=== PATIENT | male | born 1950 | race Two or more races ===

== ENCOUNTER 2021-01-11 12:26 | Inpatient (IN) | payer MEDICARE ==
[~2021-01-11] VITALS: Ht 160 cm; Wt 60.3 kg
[2021-01-11] MEDS ORDERED: OLANZAPINE 5 MG TABLET ONE (13:26)
[2021-01-11] MEDS ORDERED: OLANZAPINE 5 MG TABLET PO ONE (13:30)
[2021-01-11 13:35] LABS: BILIRUBIN,URINE Negative (NEGATIVE); COLOR,URINE YELLOW (YELLOW); LEUKOCYTE ESTERASE ,URINE Negative (NEGATIVE); NITRITE, URINE Negative (NEGATIVE); PROTEIN,URINE >=300 mg/dl (NEGATIVE); UGLUCOSE >=1000 mg/dL (NEGATIVE); UROBILINOGEN,URINE 0.2 EU/dL (0.2)
--- NOTE | 2021-01-11 13:39 | NUR ---
JOSEFINA FROM HOME TO ER BED 12. AAO. NOT IN RESP DISTRESS. BROUGHT IN FOR DANGER TO SELF AND DANGER TO OTHER. PT IS ON 5150 HOLD BY SONIA ALLEN. PER HOLD. PT WAS BEING PARANOID AND SLEEPS WITH A MACHETE. THE PATIENT'S WAS AFRAID FOR HER LIFE BECAUSE HE WAS LOOING FOR HIS MACHETE UPON WAKING UP AFTER THE PT'S TOOK IT FROM HIM WHILE SLEEPING. PT WAS ABLE TO OBTAIN A KNIFE THIS MORNING. PT WAS ALSO REPORTED VERBALIZING SUICIDAL IDEATION W/O ANY PLAN D/T UNABLE TO TOLERATE HIS PHYSICAL PAIN. PT IS PLACED ON SUICIDAL PRECAUTION, PT IN GOWN, BELONGINGS TAKEN AWAY AND SITTER AT BEDSIDE. URINE WAS COLLECTED AND SENT TO LAB.
[2021-01-11 13:44] LABS: BACTERIA,URINE None seen /HPF (None Seen); RBC,URINE 0-2 /HPF (0-2); SQUAMOUS EPITHELIAL CELL,UR None Seen /HPF (None Seen); WBC,URINE 0-2 /HPF (0-3)
[2021-01-11 13:58] LABS: BASOPHILS # (AUTO) 0.1 K/uL (0.0-0.2); BASOPHILS % (AUTO) 1.2 % (0.0-2.0); EOSINOPHILS % (AUTO) 0.4 % (0.0-6.0); HEMATOCRIT 50 % (39-51); HEMOGLOBIN 16.6 g/dL (13.5-17.5); LYMPHOCYTES # (AUTO) 1.8 K/uL (0.8-4.8); LYMPHOCYTES % (AUTO) 16.8 % (20.0-44.0); MEAN CORPUSCULAR HGB CONC 33 g/dl (31.0-36.0); MEAN CORPUSCULAR VOLUME 97 fL (80-96); MONOCYTES # (AUTO) 0.7 K/uL (0.1-1.30); NEUTROPHILS # (AUTO) 8.2 K/uL (1.8-8.9); NEUTROPHILS % (AUTO) 75.6 % (43.0-81.0); PLATELET COUNT (AUTO) 169 K/uL (150-450); RED BLOOD CELL COUNT(AUTO) 5.17 MIL/uL (4.5-6.0); WHITE BLOOD COUNT (AUTO) 10.9 K/uL (4.3-11.0)
[2021-01-11 14:08] LABS: CALCIUM, SERUM 9.4 mg/dL (8.5-10.1); CARBON DIOXIDE 31 mmol/L (21-32); CHLORIDE 102 mmol/L (98-107); CREATININE 1.1 mg/dL (0.6-1.3); GLUCOSE 339 mg/dL (74-106); POTASSIUM 4.2 mmol/L (3.5-5.1); SODIUM SERUM 140 mmol/L (136-145); UREA NITROGEN, BLOOD 13 mg/dL (7-18)
[2021-01-11 14:14] LABS: ACETAMINOPHEN 0 ug/ml (10-30); ALANINE AMINOTRANSFERASE 15 U/L (12-78); ALBUMIN 3.7 g/dL (3.4-5.0); ALCOHOL, BLOOD < 3 mg/dL (0-0); ALKALINE PHOSPHATASE 98 U/L (46-116); ASPARTATE AMINOTRANSFERASE 17 U/L (15-37); BILIRUBIN,DIRECT 0.1 mg/dL (0.0-0.2); BILIRUBIN,TOTAL 0.5 mg/dL (0.2-1.0); TOTAL PROTEIN, SERUM 7.4 g/dL (6.4-8.2)
--- NOTE | 2021-01-11 17:39 | NUR ---
BED 212B
--- NOTE | 2021-01-11 17:55 | NUR ---
REPORT GIVEN TO LALITA CUBA AT [facility].
--- NOTE | 2021-01-11 17:55 | NUR ---
REMIGIO ARANDA DNP AWARE OF ELEVATED BLOOD PRESSURE.
--- NOTE | 2021-01-11 18:14 | NUR ---
PATIENT TRANSFERRED TO [facility] INS TABLE CONDITION.
--- NOTE | 2021-01-11 18:14 | NUR ---
PT IS BEING TRANSPOTED TO UNIT ON WHEELCHAIR. PT IS IN STABLE CONDITION. NAD NOTED.
[2021-01-11] MEDS ORDERED: MAGNESIUM HYDROXIDE 30 ML UDC PO PRN (18:30)
[2021-01-11] MEDS ORDERED: MAG HYDROX/AL HYDROX/SIMETH 30 ML UDC PO PRN (18:30)
[2021-01-11] MEDS ORDERED: BLOOD SUGAR DIAGNOSTIC 1 EACH STRIP IN ONE (18:30)
[2021-01-11] MEDS ORDERED: ACETAMINOPHEN 325 MG TABLET PO PRN (18:30)
--- NOTE | 2021-01-11 18:53 | NUR ---
RN-CO: DR HARGROVE GAVE ADMITTING ORDERS NOTED AND CARRIED OUT.
[2021-01-11 20:00] VITALS: BP 161/84
[2021-01-11 20:43] VITALS: BP 161/84
[2021-01-11] MEDS: clonazePAM 0.5 MG TABLET PO PRN (20:59)
--- NOTE | 2021-01-11 21:00 | NUR ---
RN NOTE KLONOPIN 0.5 MG PO PRN GIVEN FOR ANXIETY/AGITATION. WILL CONTINUE TO MONITOR PATIENT
--- NOTE | 2021-01-11 21:00 | NUR ---
PSYCH ARNP NOTE RECEIVED PATIENT FROM [facility] ER. PATIENT ADMITTED ON A 5150 HOLD FOR DTS/DTO. PER HOLD PATIENT ADMITS TO SLEEPING WITH MACHETE, REMOVED MACHETE WHILE HE WAS SLEEPING, UPON WAKING UP PATIENT DEMANDED THAT FIND THE MACHETE, AND WENT TO THE KITCHEN AND GRABBED A KNIFE, REPORTED BEING IN FEAR FOR HER LIFE AND RUNNING OUT OF THE HOUSE TO HIDE PATIENT RAN AFTER HER, PER HOLD PATIENT ADMITS SUICIDAL IDEATION DUE TO BEING UNABLE TO TOLERATE PHYSICAL PAIN AND ASKED DOCTOR TO "EUTHANIZE" HIM. UPON FACE TO FACE ASSESSMENT PATIENT IS ALERT/ORIENTED X 3, ANXIOUS, RESTLESS, AND WORRIED ABOUT BEING HOME ALONE, AND WANTING TO GO HOME. PATIENT STATES IN CROATIAN THAT HE'S NOT CRAZY AND DOESN'T BELONG HERE, STATES THAT IT'S AN INJUSTICE THAT HE'S BEING HELD HERE BECAUSE HE'S A GOOD PERSON. PT DENIES PAIN. NO S/S OF APPARENT DISTRESS OR SOB NOTED, BREATHING EVEN AND UNLABORED. PATIENT DENIES SI/HI AT THIS TIME. PT IS AMBULATORY BUT UNSTEADY AT TIMES. PATIENT REFUSED TO SIGN ANY PAPER WORK DUE TO CURRENT MENTAL STATUS. PATIENT ADVISED OF HIS HOLD AND RIGHTS BOOKLET GIVEN. PATIENT IS UNDER THE PSYCHIATRIC CARE OF DR. HARGROVE AND THE MEDICAL CARE OF DR. REMIGIO ARANDA. PATIENT BELONGINGS WERE INVENTORIED AND CHECKED FOR CONTRABAND. PATIENT ADVANCED DIRECTIVES PREFERENCE, IMMUNIZATIONS QUESTIONNAIRE, NECESSARY PAPERWORK COMPLETED. PT. REFUSED FULL BODY SKIN ASSESSMENT. PATIENT STATES HE DOES NOT HAVE FLU, PNEUMONIA OR COVID 19 VACCINES AND WILL NOT BE GETTING THEM. PATIENT ORIENTATED TO ROOM, FLOOR, AND STAFF. PATIENT BED SIDE RAILS ARE UP X 2 FOR SAFETY. PATIENT BED IS LOCKED IN LOW POSITION. BED ALARM IS ON. WILL CONTINUE TO MONITOR THIS PATIENT Q 15 MIN WITH THE HELP OF STAFF TO MAINTAIN SAFETY.
[2021-01-11] MEDS ORDERED: ALPR0.25 PO (21:45)
[2021-01-11] MEDS ORDERED: BRIM5DRO LEFTEYE (21:45)
[2021-01-11] MEDS ORDERED: INSU3INS3 SQ (21:45)
--- NOTE | 2021-01-11 22:00 | NUR ---
RN NOTE CALLED AND SPOKE TO PATIENT'S URIEL. PER PATIENT TAKES HUMALOG 75/25 INSULIN 12 UNITS BID, XANAX 0.25 MG AT BEDTIME AND BRIMONIDINE SOLUTION 0.2% EYE DROPS FOR LEFT EYE BID. WANTS TO TALK TO MOTOR VEHICLE EMISSIONS INSPECTOR ABOUT GETTING HOME HEALTH FOR PATIENT AND ALSO WANTS TO SPEAK TO DOCTOR ABOUT PATIENT'S CONDITION. WILL ENDORSE TO DAY SHIFT NURSE. PATIENT SPOKE TO AFTERWARD AND WAS MORE CALM AND WENT TO SLEEP AFTER SPEAKING TO HER. WILL CONTINUE TO MONITOR PATIENT.
[2021-01-11 22:05] VITALS: BP 161/84
[2021-01-11 23:15] VITALS: BP 149/82
--- NOTE | 2021-01-12 00:03 | NUR ---
RN NOTE: DR. HARGROVE WAS NOTIFIED ABOUT PATIENT'S ADMISSION AT [facility] UNIT.
--- NOTE | 2021-01-12 00:10 | NUR ---
RN NOTE SPOKE TO DR. LEAHY REGARDING PATIENT'S BS = 307. PER PATIENT'S URIEL, PATIENT TAKES HUMALOG 75/25 INSULIN, 12 UNITS BID AT HOME. ORDER TO START PATIENT ON MILD SLIDING SCALE PER DR. LEAHY. ORDER READ BACK AND CONFIRMED. ORDER CARRIED OUT.
[2021-01-12] MEDS: BLOOD SUGAR DIAGNOSTIC 1 EACH STRIP IN SCH ×5 (00:25→21:08)
[2021-01-12] MEDS: INSULIN REGULAR, HUMAN 100 UNIT/ML 3 ML VIAL SQ PRN ×6 (00:29→21:20)
[2021-01-12] MEDS ORDERED: DEXTROSE 50%-WATER 50 ML DISP.SYRIN IV PRN ×2 (00:30→17:30)
--- NOTE | 2021-01-12 06:30 | NUR ---
RN CLOSING NOTE PATIENT SLEPT MOST OF THE NIGHT, WOKE UP A COUPLE TIMES TO STRETCH HIS LEGS AND WALK AROUND WITH ITINERANT TEACHER ASSISTANT WITH SBA, PT IS UNSTEADY AT TIMES, PT EVAL ORDERED. PT CURRENTLY SLEEPING, NO S/S OF DISTRESS OR SOB NOTED, BREATHING EVEN AND UNLABORED. PATIENT WAS MED COMPLIANT AND COOPERATIVE WITH CARE, ALTHOUGH HE WAS VERY ANXIOUS ABOUT BEING HOME ALONE AND INSISTING THAT HE NEEDS TO GO HOME. PATIENT DENIES SI/HI AT THIS TIME. MEDICATIONS GIVEN ORDERED, PT NEEDS MET THROUGHOUT SHIFT. SAFETY MEASURES IN PLACE: BED LOCKED IN LOW POSITION, SIDE RAILS UP X 2, Q15 MIN CHECKS FOR SAFETY AND BEHAVIOR. SPOKE TO LAST NIGHT AND SHE STATED SHE WOULD LIKE TO SPEAK TO DOCTOR REGARDING PATIENT'S CONDITION AND THE PLUMBERS AND TOP HELPERS REGARDING HOME HEALTH. PER DR. LEAHY, MED RECON TO BE DONE BY JESSICA LUCERO. WILL ENDORSE TO DAY SHIFT NURSE FOR CONTINUITY OF CARE
[2021-01-12 06:56] LABS: ALBUMIN 3.3 g/dL (3.4-5.0); BILIRUBIN,TOTAL 0.6 mg/dL (0.2-1.0); CALCIUM, SERUM 8.6 mg/dL (8.5-10.1); CREATININE 0.9 mg/dL (0.6-1.3); POTASSIUM 3.7 mmol/L (3.5-5.1); TOTAL PROTEIN, SERUM 6.8 g/dL (6.4-8.2)
[2021-01-12 06:57] LABS: CHOLESTEROL 162 mg/dL (<200); HDL CHOLESTEROL 37 mg/dL (40-60); LDL 104 mg/dL (0-99); TRIGLYCERIDES 178 mg/dL (30-150)
[2021-01-12 08:00] VITALS: BP 154/65
[2021-01-12] MEDS: DIVALPROEX SODIUM 250 MG TABLET.DR PO SCH ×3 (13:35→21:09)
[2021-01-12] MEDS: OLANZAPINE 2.5 MG TABLET PO SCH ×3 (13:35→16:22)
[2021-01-12 16:00] VITALS: BP 147/81
--- NOTE | 2021-01-12 16:21 | NUR ---
RN NOTE PATIENT REFUSED OLANZAPINE AFTER OPENING. MEDICATION WASTED. EXPLAINED RISK AND BENEFITS PATIENT STATED HE IS TAKING TOO MUCH MEDICATION ONLY WANTS TO TAKE INSULIN.
[2021-01-12] MEDS ORDERED: BLOOD SUGAR DIAGNOSTIC 1 EACH STRIP IN SCH (17:30)
[2021-01-12] MEDS ORDERED: INSULIN REGULAR, HUMAN 100 UNIT/ML 3 ML VIAL SQ PRN (17:30)
[2021-01-12] MEDS: TEMAZEPAM 7.5 MG CAPSULE PO PRN ×2 (20:57→21:07)
--- NOTE | 2021-01-13 06:18 | NUR ---
RN notes, Patient stayed awake all night. Refused to take medication. Kept on walking around the hallway until 04:00. No complaint of pain. Kept clean and dry. No significant change of condition.
[2021-01-13] MEDS: BLOOD SUGAR DIAGNOSTIC 1 EACH STRIP IN SCH ×5 (07:31→21:07)
[2021-01-13] MEDS: INSULIN REGULAR, HUMAN 100 UNIT/ML 3 ML VIAL SQ PRN (07:33)
[2021-01-13 08:00] VITALS: BP 150/90
[2021-01-13] MEDS: OLANZAPINE 2.5 MG TABLET PO SCH ×2 (08:21→16:26)
[2021-01-13] MEDS: BRIMONIDINE TARTRATE OPHT SOLN 5 ML BOTTLE LEFTEYE SCH ×2 (08:22→16:29)
--- NOTE | 2021-01-13 12:06 | NUR ---
Initial Discharge Plan: Per pt. [facility] [facility] [address] [phone][facility] with , URIEL OVIEDO [phone]. Per pt. he would like to return home once ready for D/C. Per pt.'s , Uriel she would like the pt. to return home when ready. Uriel stated she has agreed to go to therapy with . SW will continue to collaborate with the psychiatrist to plan a safe & proper D/C plan.
--- NOTE | 2021-01-13 12:11 | NUR ---
Point of Contact: SW called and spoke with pt.'s , URIEL OVIEDO [phone] collect collateral information. Pt. gave SW verbal consent to speak to . Pt. has no DPOA or Conservator.
[2021-01-13 16:00] VITALS: BP 149/90
--- NOTE | 2021-01-13 17:58 | NUR ---
[facility] RN NOTES PATIENT REFUSED MOST MEDS TODAY AND 1700 ACCU-CHECK
[2021-01-13 20:48] VITALS: BP 165/96
[2021-01-13] MEDS: DIVALPROEX SODIUM 250 MG TABLET.DR PO SCH ×2 (20:59→21:00)
[2021-01-13] MEDS: clonazePAM 0.5 MG TABLET PO PRN ×2 (20:59→21:06)
--- NOTE | 2021-01-13 21:07 | NUR ---
[facility] RN NOTE PATIENT REFUSED DEPAKOTE TONIGHT X MULTIPLE ATTEMPTS. PATIENTS BP ELEVATED AT 165/95. SUPERVISOR COREMAKER MD LEAHY CONTACTED WITH NO CALL BACK. ATTEMPTED TO ADMINISTER PRN KLONOPIN WITH PATIENT REFUSING AFTER MEDICATION PACKAGING OPEN. MEDICATION WASTED WITH SECOND RN VARINDER. PATIENT CURRENTLY SITTING IN CHAIR AT DOORWAY TO ROOM. WILL CONTINUE TO MONITOR.
[2021-01-14] MEDS ORDERED: OLANZAPINE 10 MG VIAL IM STA (06:06)
--- NOTE | 2021-01-14 06:06 | NUR ---
[facility]PS RN NOTE, PATIENT IS CONFUSED, INCOHERENT, DELUSIONAL, AGITATED, AGGRESSIVE, YELLING, AND STRIKING OUT AT STAFF. LESS RESTRICTIVE MEASURES ATTEMPTED IE DIVERSION, 1 TO 1 INTERACTION, AND REORIENTATION WAS TRIED WITH NO POSITIVE EFFECT. PAGED DR POOLE AND INFORMED HER OF MY FINDINGS. DR POOLE ORDERED ZYPREXA 5MG IM ONCE. PATIENT GIVEN AFOREMENTIONED MEDICATION IN HER RIGHT DELTOID WITH THE HELP OF STAFF AND SECURITY. PATIENT TOLERATE INJECTION WELL. ALL ORDERS NOTED AND CARRIED OUT WILL CONTINUE TO MONITOR THIS PATIENT WITH THE HELP OF STAFF.
[2021-01-14] MEDS: BLOOD SUGAR DIAGNOSTIC 1 EACH STRIP IN SCH ×4 (07:30→22:18)
[2021-01-14 08:00] VITALS: BP 139/85
[2021-01-14] MEDS: BRIMONIDINE TARTRATE OPHT SOLN 5 ML BOTTLE LEFTEYE SCH ×2 (09:00→16:40)
[2021-01-14] MEDS: OLANZAPINE 2.5 MG TABLET PO SCH ×2 (09:05→16:34)
[2021-01-14] MEDS: DIVALPROEX SODIUM 250 MG TABLET.DR PO SCH ×2 (09:05→21:48)
[2021-01-14] MEDS: clonazePAM 0.5 MG TABLET PO PRN (16:34)
--- NOTE | 2021-01-14 17:06 | NUR ---
gps/rn pt is agitated refused accucheck offered x3
[2021-01-14 20:51] VITALS: BP 138/78
[2021-01-14] MEDS: DIVALPROEX SODIUM 125 MG TABLET.DR PO SCH (21:48)
[2021-01-14] MEDS: INSULIN REGULAR, HUMAN 100 UNIT/ML 3 ML VIAL SQ PRN (22:22)
--- NOTE | 2021-01-14 22:30 | NUR ---
[facility] RN NOTES: PATIENT BLOOD SUGAR AT 22:00 428MG/DL (H). 10 UNITS REGULAR INSULIN ADMINISTERED PER SLIDING SCALE. DR LEAHY NOTIFIED PER PROTOCOL. METFORMIN 500MG PO BID ORDERED BY DR LEAHY, ORDER CARRIED OUT. PATIENT HAS NO S/S OF DISTRESS, RESPIRATION EVEN AND UNLABORED WITH EQUAL RISE AND FALL OF THE CHEST, ON ROOM AIR. WILL CONTINUE TO MONITOR.
[2021-01-15] MEDS: TEMAZEPAM 7.5 MG CAPSULE PO PRN ×2 (01:09→23:46)
--- NOTE | 2021-01-15 01:09 | NUR ---
[facility] RN NOTES: RESTORIL 15MG GIVEN PO PRN FOR SLEEP AT 0109. WILL CONTINUE TO MONITOR.
[2021-01-15] MEDS ORDERED: HALOPERIDOL LACTATE INJ 5 MG/ML VIAL IM ONE (06:00)
[2021-01-15] MEDS ORDERED: diphenhydrAMINE HCL 50 MG/ML VIAL IM ONE (06:00)
--- NOTE | 2021-01-15 06:23 | NUR ---
[facility] RN NOTES: PATIENT IS AGITATED, COMBATIVE, RESTLESS, YELLING, BANGING. REFUSING REDIRECTION. DR POOLE ORDERED HALDOL 5MG IM AND BENADRYL 25MG IM. MEDS ADMINISTERED AT 0618. PATIENT IS STILL AGITATED, YELLING AND REFUSING REDIRECTION. WILL CONTINUE TO MONITOR.
--- NOTE | 2021-01-15 06:28 | NUR ---
[facility] RN NOTES: BENADRYL 25MG PARTIAL DOSE WASTED.
[2021-01-15] MEDS: BLOOD SUGAR DIAGNOSTIC 1 EACH STRIP IN SCH ×4 (07:30→22:26)
[2021-01-15 08:00] VITALS: BP 118/56
[2021-01-15] MEDS ORDERED: METFORMIN 500 MG TABLET PO SCH (08:00)
[2021-01-15] MEDS: BRIMONIDINE TARTRATE OPHT SOLN 5 ML BOTTLE LEFTEYE SCH ×2 (08:07→16:45)
[2021-01-15] MEDS: OLANZAPINE 2.5 MG TABLET PO SCH ×2 (09:00→16:45)
[2021-01-15] MEDS: DIVALPROEX SODIUM 125 MG TABLET.DR PO SCH ×2 (09:00→21:38)
[2021-01-15] MEDS: DIVALPROEX SODIUM 250 MG TABLET.DR PO SCH ×2 (09:00→21:38)
[2021-01-15 11:48] LABS: BASOPHILS # (AUTO) 0.1 K/uL (0.0-0.2); BASOPHILS % (AUTO) 0.7 % (0.0-2.0); HEMATOCRIT 46 % (39-51); HEMOGLOBIN 15.2 g/dL (13.5-17.5); LYMPHOCYTES # (AUTO) 1.6 K/uL (0.8-4.8); LYMPHOCYTES % (AUTO) 12.3 % (20.0-44.0); MEAN CORPUSCULAR HGB CONC 33 g/dl (31.0-36.0); MEAN CORPUSCULAR VOLUME 97 fL (80-96); MONOCYTES # (AUTO) 0.6 K/uL (0.1-1.30); NEUTROPHILS # (AUTO) 10.4 K/uL (1.8-8.9); PLATELET COUNT (AUTO) 152 K/uL (150-450); RED BLOOD CELL COUNT(AUTO) 4.72 MIL/uL (4.5-6.0); WHITE BLOOD COUNT (AUTO) 12.7 K/uL (4.3-11.0)
[2021-01-15 12:00] LABS: ALBUMIN 3.4 g/dL (3.4-5.0); BILIRUBIN,TOTAL 0.6 mg/dL (0.2-1.0); CALCIUM, SERUM 9.1 mg/dL (8.5-10.1); CREATININE 1.6 mg/dL (0.6-1.3); MAGNESIUM 2.4 mg/dL (1.8-2.4); POTASSIUM 4.8 mmol/L (3.5-5.1); TOTAL PROTEIN, SERUM 6.8 g/dL (6.4-8.2)
[2021-01-15] MEDS: INSULIN LISPRO/ASPART 100 UNIT/ML CARTRIDGE SQ SCH ×2 (12:00→16:35)
--- NOTE | 2021-01-15 12:18 | NUR ---
RN-CO: NOTIFIED DR SANDERS REGARDING BUN 38 AND CREA 1.6. AWAITING FOR HIS REPLY. PT IS ASLEEP AT THIS TIME WILL TRY TO DO COLLECTING URINE WHEN PT IS AWAKE.
--- NOTE | 2021-01-15 12:27 | NUR ---
RN-CO: PT DID NOT SLEEP AT ALL LAST NIGHT. HE IS SLEEPING FROM 7:30 AM UP TO THIS TIME, RESPIRATION EVEN AND UNLABORED. THEREFORE, BLOOD SUGAR AND INSULIN AND UA COLLECTION WAS NOT PERFORMED. I WILL WAIT UNTIL PATIENT IS AWAKE.
--- NOTE | 2021-01-15 14:52 | NUR ---
per RN, LALITA PT NOT UP TO HAVING THE EXAM TODAY, REQUESTING FOR EXAM TO BE DONE ON SATURDAY.
[2021-01-15 16:00] VITALS: BP 139/71
--- NOTE | 2021-01-15 16:33 | NUR ---
RN-CO: BLOOD SUGAR IS 239
[2021-01-15] MEDS: INSULIN REGULAR, HUMAN 100 UNIT/ML 3 ML VIAL SQ PRN ×2 (16:39→22:24)
--- NOTE | 2021-01-15 16:51 | NUR ---
RN-CO: PATIENT IS AWAKE, LOOKS WELL RESTED TOOK HIS PM MEDICATIONS AND HIS INSULIN. COOPERATIVE TO CARE.
--- NOTE | 2021-01-15 18:25 | NUR ---
RNCristopherCO: URINE SPECIMEN WAS COLLECTED AT AROUND 1630, LAB WAS CALLED TO PICK IT UP.
[2021-01-15 19:22] LABS: BILIRUBIN,URINE NEGATIVE (NEGATIVE); COLOR,URINE YELLOW (YELLOW); LEUKOCYTE ESTERASE ,URINE NEGATIVE (NEGATIVE); NITRITE, URINE NEGATIVE (NEGATIVE); PROTEIN,URINE 100 mg/dl (NEGATIVE); UGLUCOSE >=1000 mg/dL (NEGATIVE); UROBILINOGEN,URINE 0.2 EU/dL (0.2)
[2021-01-15 19:36] LABS: CREATININE, URINE 155.6 MG/DL (30.0-125.0); URINE TOTAL PROTEIN 104.8 mg/dL (0-11.9)
[2021-01-15 19:49] LABS: BACTERIA,URINE RARE /HPF (None Seen); HYALINE CASTS, URINE Few /LPF (None Seen); MUCUS,URINE Few /LPF (None Seen); SQUAMOUS EPITHELIAL CELL,UR 0-2 /HPF (None Seen); WBC,URINE 0-2 /HPF (0-3)
[2021-01-15 20:00] VITALS: BP 125/61
[2021-01-15 20:03] LABS: EOSINOPHIL,URINE None Seen
[2021-01-15 20:52] VITALS: BP 125/61
[2021-01-15] MEDS: INSULIN GLARGINE, 100 UNIT/ML CARTRIDGE SQ SCH (22:23)
[2021-01-15] MEDS: clonazePAM 0.5 MG TABLET PO PRN (22:45)
--- NOTE | 2021-01-15 22:45 | NUR ---
[facility]PS RN Note: Agitation Patient was yelling loudly in his room. The yelling was disruptive to the unit. Patient was nonredirectable by multiple staff members. Patient was given PRN Klonopin by mouth for agitation. Will continue to monitor the patient.
--- NOTE | 2021-01-15 23:46 | NUR ---
[facility]PS RN Note Patient was unable to sleep. Patient was given ordered PRN Restoril by mouth. Will continue to monitor the patient.
--- NOTE | 2021-01-16 02:23 | NUR ---
[facility]PS RN NOTE BLOOD SUGAR AT HS WAS 362 MG/DL. ORDERED 10 UNITS OF LANTUS WAS ADMINISTERED. 10 UNITS OF REGULAR INSULIN WAS ALSO ADMINISTERED. WILL CONTINUE TO MONITOR.
[2021-01-16] MEDS: INSULIN REGULAR, HUMAN 100 UNIT/ML 3 ML VIAL SQ PRN ×4 (07:34→22:11)
[2021-01-16] MEDS: BLOOD SUGAR DIAGNOSTIC 1 EACH STRIP IN SCH ×4 (07:35→22:08)
[2021-01-16] MEDS: INSULIN LISPRO/ASPART 100 UNIT/ML CARTRIDGE SQ SCH ×3 (07:35→17:03)
[2021-01-16 08:00] VITALS: BP 112/70
[2021-01-16] MEDS: BRIMONIDINE TARTRATE OPHT SOLN 5 ML BOTTLE LEFTEYE SCH ×2 (08:21→17:09)
[2021-01-16] MEDS: DIVALPROEX SODIUM 125 MG TABLET.DR PO SCH (08:27)
[2021-01-16] MEDS: DIVALPROEX SODIUM 250 MG TABLET.DR PO SCH ×3 (08:27→17:09)
[2021-01-16] MEDS: OLANZAPINE 2.5 MG TABLET PO SCH ×2 (08:27→17:09)
[2021-01-16 09:25] LABS: BASOPHILS # (AUTO) 0.1 K/uL (0.0-0.2); BASOPHILS % (AUTO) 0.9 % (0.0-2.0); EOSINOPHILS % (AUTO) 1.5 % (0.0-6.0); HEMATOCRIT 46 % (39-51); HEMOGLOBIN 15.5 g/dL (13.5-17.5); LYMPHOCYTES # (AUTO) 2.9 K/uL (0.8-4.8); LYMPHOCYTES % (AUTO) 35.7 % (20.0-44.0); MEAN CORPUSCULAR HGB CONC 34 g/dl (31.0-36.0); MEAN CORPUSCULAR VOLUME 98 fL (80-96); MONOCYTES # (AUTO) 0.6 K/uL (0.1-1.30); MONOCYTES % (AUTO) 7.6 % (2.0-12.0); NEUTROPHILS # (AUTO) 4.4 K/uL (1.8-8.9); NEUTROPHILS % (AUTO) 54.3 % (43.0-81.0); PLATELET COUNT (AUTO) 149 K/uL (150-450); RED BLOOD CELL COUNT(AUTO) 4.68 MIL/uL (4.5-6.0); WHITE BLOOD COUNT (AUTO) 8.2 K/uL (4.3-11.0)
[2021-01-16 10:16] LABS: MAGNESIUM 2.5 mg/dL (1.8-2.4); PHOSPHORUS 2.5 mg/dL (2.5-4.9)
[2021-01-16 16:00] VITALS: BP 134/73
[2021-01-16 20:00] VITALS: BP 151/89
[2021-01-16] MEDS: INSULIN GLARGINE, 100 UNIT/ML CARTRIDGE SQ SCH (22:10)
[2021-01-16] MEDS: TEMAZEPAM 7.5 MG CAPSULE PO PRN (22:13)
[2021-01-17 07:35] LABS: BASOPHILS # (AUTO) 0.1 K/uL (0.0-0.2); BASOPHILS % (AUTO) 0.7 % (0.0-2.0); EOSINOPHILS % (AUTO) 1.1 % (0.0-6.0); HEMATOCRIT 44 % (39-51); HEMOGLOBIN 14.9 g/dL (13.5-17.5); LYMPHOCYTES # (AUTO) 2.8 K/uL (0.8-4.8); LYMPHOCYTES % (AUTO) 36.6 % (20.0-44.0); MEAN CORPUSCULAR HGB CONC 34 g/dl (31.0-36.0); MEAN CORPUSCULAR VOLUME 97 fL (80-96); MONOCYTES # (AUTO) 0.7 K/uL (0.1-1.30); MONOCYTES % (AUTO) 9.4 % (2.0-12.0); NEUTROPHILS % (AUTO) 52.2 % (43.0-81.0); PLATELET COUNT (AUTO) 145 K/uL (150-450); RED BLOOD CELL COUNT(AUTO) 4.56 MIL/uL (4.5-6.0); WHITE BLOOD COUNT (AUTO) 7.8 K/uL (4.3-11.0)
[2021-01-17 08:00] VITALS: BP 152/77
[2021-01-17 08:07] LABS: CREATININE KINASE (CK),MB 8.4 ng/mL (0.0-10.4)
[2021-01-17 08:14] LABS: CALCIUM, SERUM 8.4 mg/dL (8.5-10.1); CREATININE 0.9 mg/dL (0.6-1.3); MAGNESIUM 2.4 mg/dL (1.8-2.4); PHOSPHORUS 2.6 mg/dL (2.5-4.9); POTASSIUM 4.1 mmol/L (3.5-5.1)
[2021-01-17] MEDS: BLOOD SUGAR DIAGNOSTIC 1 EACH STRIP IN SCH ×2 (08:16→12:04)
[2021-01-17] MEDS: INSULIN REGULAR, HUMAN 100 UNIT/ML 3 ML VIAL SQ PRN ×2 (08:55→12:09)
[2021-01-17] MEDS: INSULIN LISPRO/ASPART 100 UNIT/ML CARTRIDGE SQ SCH ×2 (08:58→12:10)
[2021-01-17] MEDS: OLANZAPINE 2.5 MG TABLET PO SCH (09:03)
[2021-01-17] MEDS: BRIMONIDINE TARTRATE OPHT SOLN 5 ML BOTTLE LEFTEYE SCH (09:03)
[2021-01-17] MEDS: DIVALPROEX SODIUM 250 MG TABLET.DR PO SCH (09:04)
[2021-01-17 10:07] LABS: *SPE ALPHA-1-GLOBULIN 0.2 g/dL (0.0-0.4); *SPE ALPHA-2-GLOBULIN 0.7 g/dL (0.4-1.0); *SPE BETA GLOBULIN 1.2 g/dL (0.7-1.3); *SPE M-SPIKE Not Observed g/dL (Not Observed)
--- NOTE | 2021-01-17 12:45 | NUR ---
pt. made ready for discharge.all papers signed.taken to lobby escorted by armament mechanic.belongings given to pt. prescriptions given to pt. with folder.
--- NOTE | 2021-01-17 12:50 | NUR ---
SS D/C note Pt. was be discharged back to his apartment located at [[address] [facility] [address]; [phone]] with , Melissa Valdivia. Pt.s , Melissa Valdivia [phone] was made aware of the discharge and was agreeable and picked up the pt around 12 p.m. [facility] [[address] [facility] [facility] [address]; [phone]]. Upon discharge, the pt. appeared to be in a euthymic mood and presented with a calm affect. Pt appeared to be alert and oriented x4 (time, place, self and situation). Pt. ambulates independently. Pt denied both suicidal and homicidal ideation as well as auditory and visual hallucinations. Pt. has an apt. PCP: Dr. Fabian Hernandez ([facility] [place] [address]; [phone]) 5:30pm-6:30pm. Pt. was referred to [facility] Address:[address] [place], [place] [id number] Website: [email or web address] for outpatient psychiatric services. The multidisciplinary exit care form was done, printed, signed, and given to the patient.
== END 2021-01-17 12:45 | disposition home or self-care (01) | DRG 885 ==
LOC: ER 12:35 → GPS 17:58
PROVIDERS: ADMIT Psychiatry & Neurology Psychiatry; ATTEND Nurse Practitioner Acute Care
DX: F29 Unspecified psychosis not due to a substance or known physiological condition (principal); F01.50 Vascular dementia, unspecified severity, without behavioral disturbance, psychotic disturbance, mood disturbance, and anxiety; N17.0 Acute kidney failure with tubular necrosis; E11.65 Type 2 diabetes mellitus with hyperglycemia; F23 Brief psychotic disorder; F41.9 Anxiety disorder, unspecified; Z79.4 Long term (current) use of insulin; D72.829 Elevated white blood cell count, unspecified; H40.9 Unspecified glaucoma; M19.90 Unspecified osteoarthritis, unspecified site; Z20.822 Contact with and (suspected) exposure to COVID-19; G30.9 Alzheimer's disease, unspecified; F02.80 Dementia in other diseases classified elsewhere, unspecified severity, without behavioral disturbance, psychotic disturbance, mood disturbance, and anxiety; F25.9 Schizoaffective disorder, unspecified
CPT/HCPCS: 36415; 76770-TC; 80048-TC; 80053-TC; 80061-TC; 80076-TC; 81001; 82550-TC; 82553; 82570-TC; 82962-TC; 83735-TC; 83970; 84100-TC; 84155; 84155-TC; 84165; 84300-TC; 85025-TC; 87081-TC; 87086-TC; 97116-TC; 97530-TC; A6403; C9803; G0480; J1200; J1630; J1815; J3490

== ENCOUNTER 2024-11-29 22:16 | Inpatient (IN) | payer MEDICARE, OTHER ==
[~2024-11-29] VITALS: Ht 172.7 cm; Wt 61.2 kg
[~2024-11-29 22:16] MED LIST: ALPR0.25 PO; BRIM5DRO LEFTEYE; INSU3INS3 SQ
[2024-11-29] MEDS ORDERED: NOREPINEPHRINE 8MG/250ML RTU 250 ML IV ONE (23:21)
[2024-11-29 23:29] LABS: PLATELET COUNT (AUTO) 358 K/uL (150-450); RED BLOOD CELL COUNT(AUTO) 3.13 MIL/uL (4.5-6.0); RED CELL DISTRIBUTION WIDTH 16.2 % (11.5-15.0); WHITE BLOOD COUNT (AUTO) 8.2 K/uL (4.3-11.0)
[2024-11-29 23:38] LABS: CALCIUM, SERUM 8.5 mg/dL (8.5-10.1); CREATININE 2.1 mg/dL (0.6-1.3); SODIUM SERUM 125.0 mmol/L (136-145)
[2024-11-29 23:39] LABS: UREA NITROGEN, BLOOD 127.0 mg/dL (7-18)
[2024-11-29 23:44] LABS: LACTIC ACID 0.9 mmol/L (0.4-2.0)
[2024-11-29 23:47] LABS: INR 1.13 (0.91-1.10)
[2024-11-29 23:51] LABS: ASPARTATE AMINOTRANSFERASE 29.0 U/L (15-37); TOTAL PROTEIN, SERUM 7.1 g/dL (6.4-8.2)
[2024-11-30] VITALS (32 sets, daily range): BP systolic 91–130; BP diastolic 49–77; TEMP 97–97.8; O2SAT 96–100
[2024-11-30 00:16] LABS: ABG BASE EXCESS 8.5 mmol/L (-2.0-3.0); ABG OXYGEN SATURATION 95.7 % (94.0-98.0); ABG PCO2 51.8 mmHg (35.0-48.0); ABG PH 7.434 (7.350-7.450); ABG PO2 85.0 mmHg (83.0-108.0); ABG TOTAL HEMOGLOBIN 9.8 G/dL (13.5-17.5); FRACTIONATED INSPIRED OXYGEN 60.0 %; SET RATE, BG 20.0; SITE, ABG LEFT RADIAL
[2024-11-30] MEDS ORDERED: PIPERACI/TAZO 3.375GM/D5W 50ML PB IV ONE (00:27)
[2024-11-30] MEDS ORDERED: VANCOMYCIN 1 GM /D5W 250 ML PB IV ONE (00:27)
[2024-11-30] MEDS: PIPERACILLIN /TAZOBACTAM 3.375 G in IV D5W 50 ML IV ONE (00:28)
[2024-11-30] MEDS: FUROSEMIDE 40 MG/4 ML VIAL IV ONE ×2 (00:28→02:14)
[2024-11-30] MEDS: VANCOMYCIN 1 GM in IV D5W 250 ML IV ONE (00:28)
[2024-11-30 00:58] LABS: APPEARANCE,URINE SLIGHTLY CLOUDY (CLEAR); BLOOD, URINE 3+ Ery/uL (NEGATIVE); LEUKOCYTE ESTERASE ,URINE 2+ (NEGATIVE); NITRITE, URINE NEGATIVE (NEGATIVE); UGLUCOSE NEGATIVE (NEGATIVE)
[2024-11-30 01:22] LABS: ADD URINE CULTURE YES; SQUAMOUS EPITHELIAL CELL,UR Few /HPF (None Seen); YEAST,URINE Moderate /HPF (None Seen)
[2024-11-30] MEDS ORDERED: ASCO500C6 JT (02:02)
[2024-11-30] MEDS ORDERED: INSU100V7 SQ (02:02)
[2024-11-30] MEDS ORDERED: ZINC220C6 JT (02:02)
[2024-11-30] MEDS ORDERED: CRAN3875 JT (02:02)
[2024-11-30] MEDS ORDERED: MODAFINIL JT (02:02)
[2024-11-30] MEDS ORDERED: MULT-213 JT (02:02)
[2024-11-30] MEDS ORDERED: FINA5TAB3 JT (02:02)
[2024-11-30] MEDS ORDERED: ASPI-1169 JT (02:02)
[2024-11-30] MEDS ORDERED: ATOR80TA JT (02:13)
[2024-11-30] MEDS ORDERED: DOCU100T2 JT (02:13)
[2024-11-30] MEDS ORDERED: METO25TA6 JT (02:13)
[2024-11-30] MEDS ORDERED: FAMO20TA80 GT (02:13)
[2024-11-30] MEDS ORDERED: FURO40TA5 JT (02:13)
[2024-11-30] MEDS ORDERED: TAMS-12 GT (02:13)
[2024-11-30] MEDS ORDERED: LEVA1.2528 IH (02:13)
[2024-11-30] MEDS ORDERED: FOLI1TAB34 JT (02:13)
[2024-11-30] MEDS ORDERED: APIX5TAB4 JT (02:13)
[2024-11-30] MEDS ORDERED: DOSING PER PHARMACY-CEFEPIME IVPB XX PRN (04:00)
[2024-11-30] MEDS ORDERED: ACETAMINOPHEN 650 MG/SUPP.RECT RC PRN (04:00)
[2024-11-30] MEDS ORDERED: DEXTROSE 50%-WATER 50 ML DISP.SYRIN IV PRN (04:00)
[2024-11-30] MEDS ORDERED: ONDANSETRON HCL/PF 4 MG/2 ML VIAL IVP PRN (04:00)
[2024-11-30] MEDS ORDERED: DOSING PER PHARMACY-VANCOMYCIN IV XX PRN (04:00)
[2024-11-30 05:10] LABS: PLATELET COUNT (AUTO) 347 K/uL (150-450); RED BLOOD CELL COUNT(AUTO) 3.21 MIL/uL (4.5-6.0); RED CELL DISTRIBUTION WIDTH 16.9 % (11.5-15.0); WHITE BLOOD COUNT (AUTO) 7.6 K/uL (4.3-11.0)
[2024-11-30] MEDS ORDERED: CEFEPIME 1 GM VIAL ONE (05:26)
[2024-11-30 05:31] LABS: ASPARTATE AMINOTRANSFERASE 28.0 U/L (15-37); CALCIUM, SERUM 8.4 mg/dL (8.5-10.1); CREATININE 2.1 mg/dL (0.6-1.3); SODIUM SERUM 125.0 mmol/L (136-145); TOTAL PROTEIN, SERUM 6.8 g/dL (6.4-8.2)
[2024-11-30 05:40] LABS: ABG BASE EXCESS 4.7 mmol/L (-2.0-3.0); ABG OXYGEN SATURATION 93.2 % (94.0-98.0); ABG PCO2 35.5 mmHg (35.0-48.0); ABG PH 7.511 (7.350-7.450); ABG PO2 68.2 mmHg (83.0-108.0); ABG TOTAL HEMOGLOBIN 10.4 G/dL (13.5-17.5); FLOW, BLOOD GAS 40.00 L/min (0.00-30.00); FRACTIONATED INSPIRED OXYGEN 60.0 %; SITE, ABG LEFT RADIAL
[2024-11-30] MEDS: CEFEPIME 1 GM in IV D5W 50 ML IV ONE (05:40)
[2024-11-30 06:00] LABS: UREA NITROGEN, BLOOD 117.0 mg/dL (7-18)
[2024-11-30] MEDS: MODAFINIL 100 MG TABLET GT SCH (06:28)
[2024-11-30] MEDS ORDERED: BLOOD SUGAR DIAGNOSTIC 1 EACH STRIP IN SCH ×3 (07:30→12:00)
[2024-11-30] MEDS: DOCUSATE SODIUM LIQ 100 MG/10 ML UDC GT SCH ×2 (08:41→21:32)
[2024-11-30] MEDS ORDERED: MODAFINIL 100 MG JT SCH (09:00)
[2024-11-30] MEDS: FINASTERIDE (5 MG) 5 MG TABLET GT SCH (09:00)
[2024-11-30] MEDS ORDERED: METOPROLOL TARTRATE 25 MG TABLET JT SCH (09:00)
[2024-11-30] MEDS: MULTIVIT W/MINERALS 1 TAB TABLET GT SCH (09:00)
[2024-11-30] MEDS: TAMSULOSIN 0.4 MG CAP.SR.24H GT SCH ×2 (09:00→21:33)
[2024-11-30] MEDS: INSULIN GLARGINE, 100 UNIT/ML CARTRIDGE SQ SCH (09:00)
[2024-11-30] MEDS ORDERED: Medication Not On Formulary EA (Zinc Sulfate (Zinc-220) 220 MG) JT SCH (09:00)
[2024-11-30] MEDS: ASCORBIC ACID 500 MG TABLET GT SCH (09:00)
[2024-11-30] MEDS: PROSOURCE / PROSTAT (PYXIS) 30 ML UDC GT SCH (09:00)
[2024-11-30] MEDS ORDERED: Medication Not On Formulary EA (Insulin Glargine,Hum.rec.anlog (Lantus) 20 UNIT) SQ SCH (09:00)
[2024-11-30] MEDS ORDERED: ASPIRIN 81 MG TAB.CHEW GT SCH (09:00)
[2024-11-30] MEDS ORDERED: FUROSEMIDE 40 MG TABLET GT SCH (09:00)
[2024-11-30] MEDS: FAMOTIDINE (20 MG) 20 MG TABLET GT SCH ×2 (09:00→21:32)
[2024-11-30] MEDS ORDERED: Medication Not On Formulary EA (Multivitamins W-Minerals (Multivitamins With Minerals) 1 JT SCH (09:00)
[2024-11-30] MEDS: ZINC SULFATE 220 MG CAPSULE GT SCH (09:00)
[2024-11-30 09:06] LABS: FIBRINOGEN ACTIVITY 421.0 Mg/dL (213-485); INR 1.15 (0.91-1.10)
[2024-11-30 09:46] LABS: PHOSPHORUS 5.6 mg/dL (2.5-4.9)
[2024-11-30 09:53] LABS: LDL 37 mg/dL (0-99)
[2024-11-30] MEDS: INSULIN REGULAR, HUMAN 100 UNIT/ML 3 ML VIAL SQ PRN (12:13)
[2024-11-30] MEDS: BLOOD SUGAR DIAGNOSTIC 1 EACH STRIP IN SCH (12:17)
[2024-11-30] MEDS ORDERED: APIXABAN 2.5 MG TABLET GT SCH (17:00)
[2024-11-30] MEDS: VIT B CMPLX 3/FA/VIT C/BIOTIN 1 TAB TABLET JT SCH (18:00)
[2024-11-30] MEDS: APIXABAN 2.5 MG TABLET GT SCH (21:00)
[2024-11-30] MEDS: ATORVASTATIN 40 MG TABLET GT SCH (21:32)
[2024-11-30] MEDS: FLUCONAZOLE (100 MG) 100 MG TABLET PO SCH (21:33)
[2024-12-01] VITALS (27 sets, daily range): BP systolic 90–151; BP diastolic 48–75; TEMP 97–97.6; O2SAT 93–100
[2024-12-01] MEDS: VANCOMYCIN 750 MG in IV D5W 250 ML IV SCH (00:28)
[2024-12-01 05:05] LABS: PLATELET COUNT (AUTO) 317 K/uL (150-450); RED BLOOD CELL COUNT(AUTO) 2.72 MIL/uL (4.5-6.0); RED CELL DISTRIBUTION WIDTH 16.8 % (11.5-15.0); WHITE BLOOD COUNT (AUTO) 8.8 K/uL (4.3-11.0)
[2024-12-01 05:26] LABS: ASPARTATE AMINOTRANSFERASE 26.0 U/L (15-37); CALCIUM, SERUM 8.2 mg/dL (8.5-10.1); CREATININE 1.5 mg/dL (0.6-1.3); TOTAL PROTEIN, SERUM 5.8 g/dL (6.4-8.2)
[2024-12-01 05:49] LABS: SODIUM SERUM 131.0 mmol/L (136-145)
[2024-12-01 05:55] LABS: UREA NITROGEN, BLOOD 106.0 mg/dL (7-18)
[2024-12-01] MEDS: IV NS 0.9% 250 ML IV PRN (06:18)
[2024-12-01] MEDS: CEFEPIME 2 GM in IV D5W 100 ML IV SCH (06:20)
[2024-12-01] MEDS ORDERED: POTASSIUM CL. PREMIX PERIPHER. 50 ML IV SCH (06:30)
[2024-12-01] MEDS: ASPIRIN 81 MG TAB.CHEW GT SCH (08:29)
[2024-12-01] MEDS: POTASSIUM CHLORIDE 20 MEQ POWDER PACKET GT ONE (08:29)
[2024-12-01] MEDS: DAKINS QUARTER STRENGTH (0.125%) 480 ML BOTTLE TOP SCH (08:31)
[2024-12-01 16:05] LABS: CALCIUM, SERUM 8.6 mg/dL (8.5-10.1); CREATININE 1.3 mg/dL (0.6-1.3); SODIUM SERUM 133.0 mmol/L (136-145)
[2024-12-01 16:06] LABS: UREA NITROGEN, BLOOD 98.0 mg/dL (7-18)
[2024-12-01] MEDS: VIT B CMPLX 3/FA/VIT C/BIOTIN 1 TAB TABLET JT SCH (21:35)
[2024-12-01] MEDS: VANCOMYCIN 500 MG in IV D5W 100ml IV SCH (22:05)
[2024-12-02] VITALS (13 sets, daily range): BP systolic 111–135; BP diastolic 55–65; TEMP 97.5–98.4; O2SAT 98–100
[2024-12-02 04:46] LABS: PLATELET COUNT (AUTO) 347 K/uL (150-450); RED BLOOD CELL COUNT(AUTO) 2.95 MIL/uL (4.5-6.0); RED CELL DISTRIBUTION WIDTH 17.2 % (11.5-15.0); WHITE BLOOD COUNT (AUTO) 8.1 K/uL (4.3-11.0)
[2024-12-02 05:02] LABS: ASPARTATE AMINOTRANSFERASE 28.0 U/L (15-37); CALCIUM, SERUM 8.3 mg/dL (8.5-10.1); CREATININE 1.1 mg/dL (0.6-1.3); PHOSPHORUS 2.8 mg/dL (2.5-4.9); SODIUM SERUM 137.0 mmol/L (136-145); TOTAL PROTEIN, SERUM 5.9 g/dL (6.4-8.2)
[2024-12-02 06:02] LABS: UREA NITROGEN, BLOOD 82.0 mg/dL (7-18)
[2024-12-02 06:07] LABS: PTH, INTACT 80 pg/mL (15-65)
[2024-12-02 06:07] LABS: HEPATITIS B SURFACE AB (QUAL) Non Reactive (.)
[2024-12-02 08:07] LABS: COMPLEMENT C3, SERUM 110 mg/dL (82-167); COMPLEMENT C4, SERUM 40 mg/dL (12-38)
[2024-12-02] MEDS: POTASSIUM CHLORIDE 20 MEQ TAB.PRT.SR PO SCH (08:50)
[2024-12-02] MEDS: POTASSIUM CHLORIDE 20 MEQ POWDER PACKET GT ONE (09:41)
[2024-12-02] MEDS: Magnesium 1GM/D5W 100ML PREMIX 100 ML IV SCH (10:56)
[2024-12-02 13:08] LABS: *ANA ANTI-CENTROMERE B AB <0.2 AI (0.0-0.9); *ANA ANTI-DNA(DS) AB, QN <1 IU/mL (0-9); *ANA ANTI-JO-1 <0.2 AI (0.0-0.9); *ANA ANTICHROMATIN ANTIBODY <0.2 AI (0.0-0.9); *ANA RNP ANTIBODIES 0.5 AI (0.0-0.9); *ANA SJOGREN'S ANTI-SS-A <0.2 AI (0.0-0.9); *ANA SJOGREN'S ANTI-SS-B <0.2 AI (0.0-0.9); *ANAANTI-SCLERODERMA-70 AB <0.2 AI (0.0-0.9); *ANASMITH AB <0.2 AI (0.0-0.9)
[2024-12-02] MEDS: GLUCERNA 1.2 1,000 ML BOTTLE GT PRN (17:19)
[2024-12-02] MEDS: CEFEPIME 2 GM in IV D5W 100 ML IV SCH (18:20)
[2024-12-03] VITALS: BP 122/53; TEMP 98.1; O2SAT 96
[2024-12-03 04:00] VITALS: BP 112/56; TEMP 97.7; O2SAT 99
[2024-12-03 05:08] LABS: FOLIC ACID > 20.0 ng/mL (>3.0)
[2024-12-03 07:21] LABS: PLATELET COUNT (AUTO) 361 K/uL (150-450); RED BLOOD CELL COUNT(AUTO) 3.25 MIL/uL (4.5-6.0); RED CELL DISTRIBUTION WIDTH 16.9 % (11.5-15.0); WHITE BLOOD COUNT (AUTO) 10.7 K/uL (4.3-11.0)
[2024-12-03 07:30] VITALS: BP 114/55; TEMP 97.6; O2SAT 100
[2024-12-03 07:46] LABS: ASPARTATE AMINOTRANSFERASE 28.0 U/L (15-37); CALCIUM, SERUM 8.4 mg/dL (8.5-10.1); CREATININE 0.9 mg/dL (0.6-1.3); PHOSPHORUS 1.9 mg/dL (2.5-4.9); SODIUM SERUM 140.0 mmol/L (136-145); TOTAL PROTEIN, SERUM 6.2 g/dL (6.4-8.2); UREA NITROGEN, BLOOD 64.0 mg/dL (7-18)
[2024-12-03] MEDS ORDERED: FLUC100T8 PO (11:57)
[2024-12-03] MEDS ORDERED: CEPH250S GT (11:57)
[2024-12-03] MEDS ORDERED: APIX2.5T GT (11:57)
[2024-12-03] MEDS: NEUTRA PHOS 1 POWD.PACKET PO ONE (17:00)
[2024-12-04 15:07] LABS: *SPE A/G RATIO 0.6 (0.7-1.7); *SPE ALBUMIN 1.9 g/dL (2.9-4.4); *SPE ALPHA-1-GLOBULIN 0.3 g/dL (0.0-0.4); *SPE ALPHA-2-GLOBULIN 0.8 g/dL (0.4-1.0); *SPE BETA GLOBULIN 1.1 g/dL (0.7-1.3); *SPE GLOBULIN, TOTAL 3.4 g/dL (2.2-3.9); *SPE M-SPIKE Not Observed g/dL (Not Observed); *SPE PROTEIN TOTAL 5.3 g/dL (6.0-8.5); *SPEGAMMA GLOBULIN 1.3 g/dL (0.4-1.8)
[2024-12-06 09:07] LABS: VITAMIN B1 THIAMINE,WB 128.5 nmol/L (66.5-200.0)
[2024-12-06 13:07] LABS: METHYLMALONIC ACID 408 nmol/L (0-378)
== END 2024-12-03 18:20 | DRG 64 ==
LOC: ER 22:18 → ICU 11-30 02:33 → TELE 12-02 11:36
PROVIDERS: ADMIT Registered Nurse Psychiatric/Mental Health; ATTEND Nurse Practitioner Acute Care
DX: I63.9 Cerebral infarction, unspecified (principal); G93.41 Metabolic encephalopathy; J96.01 Acute respiratory failure with hypoxia; L89.154 Pressure ulcer of sacral region, stage 4; G93.5 Compression of brain; I50.33 Acute on chronic diastolic (congestive) heart failure; G93.6 Cerebral edema; I13.0 Hypertensive heart and chronic kidney disease with heart failure and stage 1 through stage 4 chronic kidney disease, or unspecified chronic kidney disease; T83.511A Infection and inflammatory reaction due to indwelling urethral catheter, initial encounter; N17.9 Acute kidney failure, unspecified; E87.1 Hypo-osmolality and hyponatremia; E87.3 Alkalosis; I69.354 Hemiplegia and hemiparesis following cerebral infarction affecting left non-dominant side; G91.1 Obstructive hydrocephalus; F10.27 Alcohol dependence with alcohol-induced persisting dementia; N13.6 Pyonephrosis; D64.9 Anemia, unspecified; E11.65 Type 2 diabetes mellitus with hyperglycemia; E78.5 Hyperlipidemia, unspecified; N18.9 Chronic kidney disease, unspecified; R13.10 Dysphagia, unspecified; Z74.01 Bed confinement status; Z79.01 Long term (current) use of anticoagulants; Z79.4 Long term (current) use of insulin; Z87.440 Personal history of urinary (tract) infections; Z93.1 Gastrostomy status; Z87.01 Personal history of pneumonia (recurrent); M62.50 Muscle wasting and atrophy, not elsewhere classified, unspecified site; Z20.822 Contact with and (suspected) exposure to COVID-19; L89.892 Pressure ulcer of other site, stage 2; E87.6 Hypokalemia; N40.1 Benign prostatic hyperplasia with lower urinary tract symptoms; E11.22 Type 2 diabetes mellitus with diabetic chronic kidney disease; I69.322 Dysarthria following cerebral infarction; I25.10 Atherosclerotic heart disease of native coronary artery without angina pectoris; B96.89 Other specified bacterial agents as the cause of diseases classified elsewhere; Y84.6 Urinary catheterization as the cause of abnormal reaction of the patient, or of later complication, without mention of misadventure at the time of the procedure; Y92.129 Unspecified place in nursing home as the place of occurrence of the external cause; Y73.8 Miscellaneous gastroenterology and urology devices associated with adverse incidents, not elsewhere classified; R29.711 NIHSS score 11
CPT/HCPCS: 31720; 36415; 36600; 70450-TC; 71045-TC; 76770-TC; 80048-TC; 80053-TC; 80061-TC; 80076-TC; 80202-TC; 81001; 82607-TC; 82803-TC; 82962-TC; 83605-TC; 83735-TC; 83880; 83921; 83970; 84100-TC; 84155; 84165; 84425; 84443-TC; 84550-TC; 85025-TC; 85385-TC; 85652-TC; 85730-TC; 86225; 86235; 86706; 86803; 87040-TC; 87070-TC; 87081-TC; 87086-TC; 87186-TC; 87205-TC; 87340; 92526; 92611; 93307-TC; 94640-TC; 94760-TC; 94799-TC; 97110-TC; 97530-TC; 99082-TC; A4223; G0378; J0692; J1815; J1938; J2543; J3373; J3374; J3475; J7040; J7050; J7060

== ENCOUNTER 2024-12-06 20:12 | Inpatient (IN) | payer MEDICARE, OTHER ==
[~2024-12-06] VITALS: Ht 172.7 cm; Wt 66.0 kg
[~2024-12-06 20:12] MED LIST changes: -ALPR0.25 PO; +APIX2.5T GT; +ASCO500C6 JT; +ASPI-1169 JT; +ATOR80TA JT; -BRIM5DRO LEFTEYE; +CEPH250S GT; +CRAN3875 JT; +DOCU100T2 JT; +FAMO20TA80 GT; +FINA5TAB3 JT; +FLUC100T8 PO; +FOLI1TAB34 JT; +FURO40TA5 JT; +INSU100V7 SQ; -INSU3INS3 SQ; +LEVA1.2528 IH; +METO25TA6 JT; +MODAFINIL JT; +MULT-213 JT; +TAMS-12 GT; +ZINC220C6 JT
[2024-12-06 21:00] LABS: PLATELET COUNT (AUTO) 255 K/uL (150-450); RED BLOOD CELL COUNT(AUTO) 2.77 MIL/uL (4.5-6.0); RED CELL DISTRIBUTION WIDTH 16.1 % (11.5-15.0); WHITE BLOOD COUNT (AUTO) 11.3 K/uL (4.3-11.0)
[2024-12-06 21:11] LABS: APPEARANCE,URINE CLEAR (CLEAR); BLOOD, URINE 3+ Ery/uL (NEGATIVE); LEUKOCYTE ESTERASE ,URINE TRACE (NEGATIVE); NITRITE, URINE NEGATIVE (NEGATIVE); UGLUCOSE 1+ mg/dL (NEGATIVE)
[2024-12-06 21:12] LABS: CALCIUM, SERUM 8.3 mg/dL (8.5-10.1); CREATININE 1.0 mg/dL (0.6-1.3); SODIUM SERUM 133.0 mmol/L (136-145); UREA NITROGEN, BLOOD 62.0 mg/dL (7-18)
[2024-12-06 21:14] LABS: INR 1.22 (0.91-1.10)
[2024-12-06 21:20] LABS: LACTIC ACID 1.3 mmol/L (0.4-2.0)
[2024-12-06 21:27] LABS: ASPARTATE AMINOTRANSFERASE 29.0 U/L (15-37); TOTAL PROTEIN, SERUM 6.7 g/dL (6.4-8.2)
[2024-12-06] MEDS ORDERED: PIPERACI/TAZO 3.375GM/D5W 50ML PB IV ONE (21:34)
[2024-12-06] MEDS ORDERED: VANCOMYCIN 1 GM /D5W 250 ML PB IV ONE (21:34)
[2024-12-06] MEDS: PIPERACILLIN /TAZOBACTAM 3.375 G in IV D5W 50 ML IV ONE (21:39)
[2024-12-06] MEDS ORDERED: Z GUARD REMEDY 4 OZ OINT TP PRN (22:00)
[2024-12-06] MEDS ORDERED: ONDANSETRON HCL/PF 4 MG/2 ML VIAL IVP PRN (22:00)
[2024-12-06] MEDS ORDERED: ACETAMINOPHEN 650 MG/SUPP.RECT RC PRN (22:00)
[2024-12-06] MEDS ORDERED: DOSING PER PHARMACY-VANCOMYCIN IV XX PRN (22:00)
[2024-12-06] MEDS ORDERED: DEXTROSE 50%-WATER 50 ML DISP.SYRIN IV PRN (22:00)
[2024-12-06 22:01] LABS: ADD URINE CULTURE NO; SQUAMOUS EPITHELIAL CELL,UR 0-2 /HPF (None Seen)
[2024-12-06 22:05] LABS: EOSINOPHILS % (MANUAL) 1 % (0-4); LYMPHOCYTES % (MANUAL) 20 % (16-48); MONOCYTES % (MANUAL) 1 % (0-11.0); NEUTROPHILS % (MANUAL) 78 (42-76); PLATELET ESTIMATE ADEQUATE
[2024-12-06] MEDS: VANCOMYCIN 1 GM in IV D5W 250 ML IV ONE (22:08)
[2024-12-06] MEDS: ALBUTEROL FS 2.5 MG/0.5 ML VIAL.NEB NEB ONE (23:00)
[2024-12-06] MEDS: BLOOD SUGAR DIAGNOSTIC 1 EACH STRIP IN SCH (23:47)
[2024-12-06 23:51] LABS: ABG BASE EXCESS 11.3 mmol/L (-2.0-3.0); ABG OXYGEN SATURATION 96.3 % (94.0-98.0); ABG PCO2 43.1 mmHg (35.0-48.0); ABG PH 7.528 (7.350-7.450); ABG PO2 84.5 mmHg (83.0-108.0); ABG TOTAL HEMOGLOBIN 8.9 G/dL (13.5-17.5); FLOW, BLOOD GAS 2.00 L/min (0.00-30.00); FRACTIONATED INSPIRED OXYGEN 28.0 %; SITE, ABG LEFT RADIAL
[2024-12-07] VITALS: BP 119/69; TEMP 98; O2SAT 100
[2024-12-07] MEDS: IPRATROPIUM NEB FS 0.5 MG/2.5 ML AMPUL.NEB NEB ONE (00:03)
[2024-12-07] MEDS: GLUCERNA 1.2 1,000 ML BOTTLE GT PRN (00:13)
[2024-12-07] MEDS: INSULIN REGULAR, HUMAN 100 UNIT/ML 3 ML VIAL SQ PRN (00:27)
[2024-12-07 04:00] VITALS: BP 125/60; TEMP 98.5; O2SAT 100
[2024-12-07] MEDS ORDERED: PIPERACILLIN /TAZOBACTAM 3.375 G in IV D5W 50 ML IV SCH (05:00)
[2024-12-07] MEDS ORDERED: PIPERACILLIN /TAZOBACTAM 3.375 G in IV D5W 50 ML IV ONE (05:00)
[2024-12-07 07:42] LABS: PLATELET COUNT (AUTO) 267 K/uL (150-450); RED BLOOD CELL COUNT(AUTO) 2.75 MIL/uL (4.5-6.0); RED CELL DISTRIBUTION WIDTH 16.5 % (11.5-15.0); WHITE BLOOD COUNT (AUTO) 10.6 K/uL (4.3-11.0)
[2024-12-07 07:54] LABS: CALCIUM, SERUM 8.4 mg/dL (8.5-10.1); CREATININE 1.1 mg/dL (0.6-1.3); PHOSPHORUS 2.6 mg/dL (2.5-4.9); SODIUM SERUM 136.0 mmol/L (136-145); UREA NITROGEN, BLOOD 56.0 mg/dL (7-18)
[2024-12-07 08:00] VITALS: BP 129/65; TEMP 98.4; O2SAT 100
[2024-12-07] MEDS: ZINC SULFATE 220 MG CAPSULE JT SCH (08:26)
[2024-12-07] MEDS: ASCORBIC ACID 500 MG TABLET GT SCH (08:26)
[2024-12-07] MEDS: FINASTERIDE (5 MG) 5 MG TABLET GT SCH (08:26)
[2024-12-07] MEDS: MULTIVIT W/MINERALS 1 TAB TABLET JT SCH (08:26)
[2024-12-07] MEDS: MODAFINIL 100 MG TABLET GT SCH (08:26)
[2024-12-07] MEDS: TAMSULOSIN 0.4 MG CAP.SR.24H GT SCH (08:26)
[2024-12-07] MEDS: DOCUSATE SODIUM LIQ 100 MG/10 ML UDC JT SCH (08:26)
[2024-12-07] MEDS: PANTOPRAZOLE 40 MG VIAL IV SCH (08:27)
[2024-12-07] MEDS: APIXABAN 2.5 MG TABLET GT SCH (08:27)
[2024-12-07] MEDS: METOPROLOL TARTRATE 25 MG TABLET JT SCH (08:27)
[2024-12-07] MEDS: ASPIRIN 81 MG TAB.CHEW GT SCH (08:27)
[2024-12-07] MEDS: FAMOTIDINE (20 MG) 20 MG TABLET GT SCH (08:27)
[2024-12-07] MEDS: FUROSEMIDE 40 MG/4 ML VIAL IV SCH (08:44)
[2024-12-07] MEDS: INSULIN GLARGINE, 100 UNIT/ML CARTRIDGE SQ SCH (08:49)
[2024-12-07] MEDS ORDERED: Medication Not On Formulary EA (Cran/Vitc/Mannose/Inulin/Brom (Uti-Stat Liquid) 30 ML) JT SCH (09:00)
[2024-12-07] MEDS ORDERED: FUROSEMIDE 40 MG TABLET GT SCH (09:00)
[2024-12-07] MEDS: ZOSYN IVPB 3.375 G in IV D5W 50ml IV SCH (10:22)
[2024-12-07] MEDS: VANCOMYCIN 750 MG in IV D5W 250 ML IV SCH (10:54)
[2024-12-07 11:46] LABS: ABG BASE EXCESS 12.6 mmol/L (-2.0-3.0); ABG OXYGEN SATURATION 97.7 % (94.0-98.0); ABG PCO2 46.6 mmHg (35.0-48.0); ABG PH 7.516 (7.350-7.450); ABG PO2 97.1 mmHg (83.0-108.0); ABG TOTAL HEMOGLOBIN 8.9 G/dL (13.5-17.5); FLOW, BLOOD GAS 2.00 L/min (0.00-30.00); FRACTIONATED INSPIRED OXYGEN 28.0 %; SITE, ABG RIGHT BRACHIAL
[2024-12-07 12:00] VITALS: BP 120/63; TEMP 98.4; O2SAT 100
[2024-12-07 16:00] VITALS: BP 113/58; TEMP 98.1; O2SAT 93
[2024-12-07] MEDS: VITAMIN B COMP W-C 1 TAB TABLET JT SCH (17:34)
[2024-12-07 20:00] VITALS: BP 117/54; TEMP 99.5; O2SAT 100
[2024-12-07] MEDS: ATORVASTATIN 40 MG TABLET GT SCH (22:57)
[2024-12-08] VITALS (7 sets, daily range): BP systolic 102–119; BP diastolic 53–59; TEMP 97.7–98.8; O2SAT 99–100
[2024-12-08 06:57] LABS: CALCIUM, SERUM 8.6 mg/dL (8.5-10.1); CREATININE 1.0 mg/dL (0.6-1.3); SODIUM SERUM 137 mmol/L (136-145); UREA NITROGEN, BLOOD 51 mg/dL (7-18)
[2024-12-08] MEDS: THERAHONEY GEL 1.5 OZ TUBE TP SCH (08:37)
[2024-12-08] MEDS: PROSOURCE / PROSTAT (PYXIS) 30 ML UDC GT SCH (16:37)
[2024-12-08] MEDS: VANCOMYCIN 1 GM in IV D5W 250 ML IV SCH (22:17)
[2024-12-09] VITALS: BP 116/53; TEMP 98.4; O2SAT 100
[2024-12-09 04:00] VITALS: BP 103/52; TEMP 98.8; O2SAT 100
[2024-12-09 08:00] VITALS: BP 128/94; TEMP 98.2; O2SAT 99
[2024-12-09] MEDS: PANTOPRAZOLE 40 MG/PACK PACK GT SCH (08:22)
[2024-12-09 09:52] LABS: SODIUM SERUM 139 mmol/L (136-145)
[2024-12-09 09:53] LABS: CALCIUM, SERUM 8.6 mg/dL (8.5-10.1); UREA NITROGEN, BLOOD 52 mg/dL (7-18)
[2024-12-09 09:54] LABS: CREATININE 1.0 mg/dL (0.6-1.3)
[2024-12-09] MEDS: Z GUARD REMEDY 4 OZ OINT TP SCH (13:08)
[2024-12-09 16:00] VITALS: BP 96/56; TEMP 98; O2SAT 98
[2024-12-09] MEDS ORDERED: VANCOMYCIN 1 GM in IV D5W 250 ML IV SCH (18:00)
[2024-12-09 20:00] VITALS: BP 128/63; TEMP 98.2; O2SAT 100
[2024-12-10 04:00] VITALS: BP 108/54; TEMP 98.4; O2SAT 98
[2024-12-10 08:45] LABS: CALCIUM, SERUM 8.6 mg/dL (8.5-10.1); CREATININE 1.4 mg/dL (0.6-1.3); SODIUM SERUM 142.0 mmol/L (136-145); UREA NITROGEN, BLOOD 53.0 mg/dL (7-18)
[2024-12-10] MEDS: PIPERACILLIN /TAZOBACTAM 3.375 G in IV D5W 100 ML IV SCH (10:33)
[2024-12-10 12:00] VITALS: BP 111/59; TEMP 98.8; O2SAT 98
[2024-12-10 20:00] VITALS: BP 114/58; TEMP 97.5; O2SAT 96
[2024-12-11] MEDS: ACETAMINOPHEN 650 MG/20.3 ML UDC GT PRN (03:45)
[2024-12-11 04:00] VITALS: BP 115/58; TEMP 98.2; O2SAT 100
[2024-12-11 07:15] LABS: CALCIUM, SERUM 8.9 mg/dL (8.5-10.1); CREATININE 1.4 mg/dL (0.6-1.3); SODIUM SERUM 144.0 mmol/L (136-145); UREA NITROGEN, BLOOD 59.0 mg/dL (7-18)
[2024-12-11 08:00] VITALS: BP 106/61; TEMP 98; O2SAT 94
[2024-12-11 12:00] VITALS: BP 100/60; TEMP 98.4; O2SAT 96
[2024-12-11 16:00] VITALS: BP 129/65; TEMP 97.6; O2SAT 96
[2024-12-11 20:00] VITALS: BP 106/59; TEMP 98.1; O2SAT 93
[2024-12-11] MEDS: GLUCERNA 1.2 1,000 ML BOTTLE NG SCH (22:30)
[2024-12-12 04:00] VITALS: BP 125/72; TEMP 99; O2SAT 99
[2024-12-12 07:51] LABS: CALCIUM, SERUM 8.7 mg/dL (8.5-10.1); CREATININE 1.6 mg/dL (0.6-1.3); PHOSPHORUS 4.3 mg/dL (2.5-4.9); SODIUM SERUM 140.0 mmol/L (136-145); UREA NITROGEN, BLOOD 71.0 mg/dL (7-18)
[2024-12-12 07:57] LABS: PLATELET COUNT (AUTO) 210 K/uL (150-450); RED BLOOD CELL COUNT(AUTO) 2.49 MIL/uL (4.5-6.0); RED CELL DISTRIBUTION WIDTH 16.4 % (11.5-15.0); WHITE BLOOD COUNT (AUTO) 11.5 K/uL (4.3-11.0)
[2024-12-12 08:00] VITALS: BP 115/63; TEMP 98.1; O2SAT 95
[2024-12-12 16:00] VITALS: BP 112/61; TEMP 97.7; O2SAT 100
[2024-12-12 20:00] VITALS: BP 112/61; TEMP 98.6; O2SAT 100
[2024-12-13 04:00] VITALS: BP 117/63; TEMP 99; O2SAT 100
[2024-12-13 07:17] LABS: CALCIUM, SERUM 8.8 mg/dL (8.5-10.1); CREATININE 2.0 mg/dL (0.6-1.3); SODIUM SERUM 144.0 mmol/L (136-145)
[2024-12-13 08:00] VITALS: BP 105/59; TEMP 98.2; O2SAT 100
[2024-12-13 08:06] LABS: UREA NITROGEN, BLOOD 82.0 mg/dL (7-18)
[2024-12-13 08:28] LABS: PLATELET COUNT (AUTO) 216 K/uL (150-450); RED BLOOD CELL COUNT(AUTO) 2.45 MIL/uL (4.5-6.0); RED CELL DISTRIBUTION WIDTH 16.2 % (11.5-15.0); WHITE BLOOD COUNT (AUTO) 13.0 K/uL (4.3-11.0)
[2024-12-13] MEDS ORDERED: DOSE PER PHARMACY (MD SPECIFY MEDICATION) 1 EA IV PRN (10:30)
[2024-12-13 15:39] LABS: CALCIUM, SERUM 8.4 mg/dL (8.5-10.1); CREATININE 1.9 mg/dL (0.6-1.3); SODIUM SERUM 141.0 mmol/L (136-145)
[2024-12-13 15:47] LABS: UREA NITROGEN, BLOOD 86.0 mg/dL (7-18)
[2024-12-13 16:00] VITALS: BP 122/68; TEMP 97.7; O2SAT 99
[2024-12-13 20:00] VITALS: BP 116/72; TEMP 98.3; O2SAT 98
[2024-12-14] VITALS (10 sets, daily range): BP systolic 115–134; BP diastolic 65–82; TEMP 97.3–98.6; O2SAT 98–100
[2024-12-14 08:01] LABS: CALCIUM, SERUM 8.8 mg/dL (8.5-10.1); CREATININE 2.2 mg/dL (0.6-1.3); PHOSPHORUS 5.3 mg/dL (2.5-4.9); SODIUM SERUM 143.0 mmol/L (136-145)
[2024-12-14 08:10] LABS: UREA NITROGEN, BLOOD 86.0 mg/dL (7-18)
[2024-12-14 08:22] LABS: PLATELET COUNT (AUTO) 250 K/uL (150-450); RED BLOOD CELL COUNT(AUTO) 2.24 MIL/uL (4.5-6.0); RED CELL DISTRIBUTION WIDTH 16.3 % (11.5-15.0); WHITE BLOOD COUNT (AUTO) 10.4 K/uL (4.3-11.0)
[2024-12-14 10:33] LABS: LYMPHOCYTES % (MANUAL) 19 % (16-48); MONOCYTES % (MANUAL) 4 % (0-11.0); NEUTROPHILS % (MANUAL) 77 (42-76)
[2024-12-14 10:34] LABS: PLATELET ESTIMATE ADEQUATE
[2024-12-14 13:52] LABS: IRON, SERUM 41.0 ug/dl (50-175)
[2024-12-14 17:32] LABS: APPEARANCE,URINE CLEAR (CLEAR); BLOOD, URINE 2+ Ery/uL (NEGATIVE); LEUKOCYTE ESTERASE ,URINE 1+ (NEGATIVE); NITRITE, URINE NEGATIVE (NEGATIVE); UGLUCOSE NEGATIVE (NEGATIVE)
[2024-12-14 17:43] LABS: CREATININE, URINE 26.9 MG/DL (30.0-125.0); URINE SODIUM, RANDOM 37.0 mmol/l (40-220); URINE TOTAL PROTEIN 135.0 mg/dL (0-11.9)
[2024-12-14 18:23] LABS: ADD URINE CULTURE YES; YEAST,URINE Many /HPF (None Seen)
[2024-12-14 18:26] LABS: EOSINOPHIL,URINE None Seen
[2024-12-14] MEDS: PIPERACILLIN /TAZOBACTAM 3.375 G in IV D5W 100 ML IV SCH (21:46)
[2024-12-15 04:00] VITALS: BP 122/66; TEMP 97.6; O2SAT 97
[2024-12-15 06:41] LABS: PLATELET COUNT (AUTO) 267 K/uL (150-450); RED BLOOD CELL COUNT(AUTO) 2.51 MIL/uL (4.5-6.0); RED CELL DISTRIBUTION WIDTH 16.6 % (11.5-15.0); WHITE BLOOD COUNT (AUTO) 10.5 K/uL (4.3-11.0)
[2024-12-15 06:48] LABS: ERYTHROCYTE SEDIMENTATION RATE 105 MM/HR (0-20)
[2024-12-15 07:00] LABS: ASPARTATE AMINOTRANSFERASE 31.0 U/L (15-37); CALCIUM, SERUM 8.8 mg/dL (8.5-10.1); CREATINE KINASE, TOTAL 56.0 U/L (39-308); CREATININE 2.0 mg/dL (0.6-1.3); NT-PRO BNP 20848.0 pg/mL (0-125); PHOSPHORUS 4.9 mg/dL (2.5-4.9); SODIUM SERUM 142.0 mmol/L (136-145); TOTAL PROTEIN, SERUM 6.9 g/dL (6.4-8.2)
[2024-12-15 07:42] LABS: UREA NITROGEN, BLOOD 97.0 mg/dL (7-18)
[2024-12-15 08:00] VITALS: BP 116/71; TEMP 97.4; O2SAT 95
[2024-12-15] MEDS: POTASSIUM CHLORIDE 20 MEQ POWDER PACKET GT ONE (11:09)
[2024-12-15 16:00] VITALS: BP 122/66; TEMP 98.1; O2SAT 100
[2024-12-15 20:00] VITALS: BP 117/62; TEMP 99; O2SAT 95
[2024-12-15 23:05] VITALS: O2SAT 100
[2024-12-15] MEDS: ALBUTEROL FS 2.5 MG/0.5 ML VIAL.NEB NEB PRN (23:05)
[2024-12-15] MEDS: IPRATROPIUM NEB FS 0.5 MG/2.5 ML AMPUL.NEB NEB PRN (23:05)
[2024-12-15 23:20] VITALS: O2SAT 100
[2024-12-16 04:00] VITALS: BP 92/66; TEMP 99.9; O2SAT 97
[2024-12-16] MEDS: GUAIFENESIN 300 MG/15 ML UDC PO PRN (04:49)
[2024-12-16 06:07] LABS: COMPLEMENT C3, SERUM 132 mg/dL (82-167); COMPLEMENT C4, SERUM 48 mg/dL (12-38)
[2024-12-16 08:00] VITALS: BP 112/48; TEMP 99.5; O2SAT 99
[2024-12-16 08:14] LABS: CALCIUM, SERUM 9.0 mg/dL (8.5-10.1); CREATININE 2.4 mg/dL (0.6-1.3); SODIUM SERUM 146.0 mmol/L (136-145)
[2024-12-16 08:23] LABS: UREA NITROGEN, BLOOD 108.0 mg/dL (7-18)
[2024-12-16 14:07] LABS: *ANA ANTI-CENTROMERE B AB <0.2 AI (0.0-0.9); *ANA ANTI-DNA(DS) AB, QN <1 IU/mL (0-9); *ANA ANTI-JO-1 <0.2 AI (0.0-0.9); *ANA ANTICHROMATIN ANTIBODY <0.2 AI (0.0-0.9); *ANA RNP ANTIBODIES 0.5 AI (0.0-0.9); *ANA SJOGREN'S ANTI-SS-A 0.2 AI (0.0-0.9); *ANA SJOGREN'S ANTI-SS-B <0.2 AI (0.0-0.9); *ANAANTI-SCLERODERMA-70 AB <0.2 AI (0.0-0.9); *ANASMITH AB <0.2 AI (0.0-0.9)
[2024-12-16 16:00] VITALS: BP 116/60; TEMP 98.3; O2SAT 96
[2024-12-16 20:00] VITALS: BP 107/60; TEMP 97.7; O2SAT 96
[2024-12-17 04:00] VITALS: BP 103/55; TEMP 98; O2SAT 99
[2024-12-17 04:03] LABS: HEPATITIS B SURFACE AB (QUAL) Non Reactive (.)
[2024-12-17 07:47] LABS: CALCIUM, SERUM 9.0 mg/dL (8.5-10.1); CREATININE 2.7 mg/dL (0.6-1.3); SODIUM SERUM 145.0 mmol/L (136-145)
[2024-12-17 08:00] VITALS: BP 96/51; TEMP 98.1; O2SAT 99
[2024-12-17 08:07] LABS: UREA NITROGEN, BLOOD 122.0 mg/dL (7-18)
[2024-12-17 13:40] LABS: ABG BASE EXCESS 8.5 mmol/L (-2.0-3.0); ABG OXYGEN SATURATION 84.8 % (94.0-98.0); ABG PCO2 43.3 mmHg (35.0-48.0); ABG PH 7.494 (7.350-7.450); ABG PO2 52.2 mmHg (83.0-108.0); ABG TOTAL HEMOGLOBIN 8.2 G/dL (13.5-17.5); FRACTIONATED INSPIRED OXYGEN 32.0 %; SITE, ABG RIGHT RADIAL
[2024-12-17 16:00] VITALS: BP 111/64; TEMP 97.1; O2SAT 99
[2024-12-17 20:00] VITALS: BP 121/55; TEMP 98.7; O2SAT 95
[2024-12-17 21:07] LABS: HEPATITIS B CORE AB, IgM Negative (Negative); HEPATITIS B CORE AB, TOTAL Negative (Negative); HEPATITIS B SURFACE AB (QUAL) Non Reactive (.)
[2024-12-18 04:00] VITALS: BP 116/64; TEMP 97.3; O2SAT 95
[2024-12-18 08:00] VITALS: BP 110/55; TEMP 97.9; O2SAT 99
[2024-12-18 09:00] LABS: PLATELET COUNT (AUTO) 328 K/uL (150-450); RED BLOOD CELL COUNT(AUTO) 2.29 MIL/uL (4.5-6.0); RED CELL DISTRIBUTION WIDTH 18.2 % (11.5-15.0); WHITE BLOOD COUNT (AUTO) 12.8 K/uL (4.3-11.0)
[2024-12-18 09:57] LABS: CALCIUM, SERUM 9.0 mg/dL (8.5-10.1); CREATININE 2.9 mg/dL (0.6-1.3); SODIUM SERUM 146.0 mmol/L (136-145)
[2024-12-18 10:02] LABS: UREA NITROGEN, BLOOD 150.0 mg/dL (7-18)
[2024-12-18 11:29] LABS: ABG BASE EXCESS 10.1 mmol/L (-2.0-3.0); ABG OXYGEN SATURATION 87.8 % (94.0-98.0); ABG PCO2 46.3 mmHg (35.0-48.0); ABG PH 7.489 (7.350-7.450); ABG PO2 59.6 mmHg (83.0-108.0); ABG TOTAL HEMOGLOBIN 7.1 G/dL (13.5-17.5); FLOW, BLOOD GAS 3.00 L/min (0.00-30.00); FRACTIONATED INSPIRED OXYGEN 32.0 %; SITE, ABG LEFT RADIAL
[2024-12-18 16:00] VITALS: BP 108/60; TEMP 97.5; O2SAT 99
[2024-12-18 20:45] VITALS: BP 95/53; TEMP 97.5; O2SAT 99
[2024-12-19] VITALS (13 sets, daily range): BP systolic 96–126; BP diastolic 47–73; TEMP 97.5–98.3; O2SAT 99–100
[2024-12-19 08:08] LABS: CALCIUM, SERUM 8.6 mg/dL (8.5-10.1); CREATININE 2.3 mg/dL (0.6-1.3); PHOSPHORUS 4.2 mg/dL (2.5-4.9); SODIUM SERUM 143.0 mmol/L (136-145)
[2024-12-19 08:22] LABS: UREA NITROGEN, BLOOD 106.0 mg/dL (7-18)
[2024-12-19 08:37] LABS: PLATELET COUNT (AUTO) 366 K/uL (150-450); RED BLOOD CELL COUNT(AUTO) 2.30 MIL/uL (4.5-6.0); RED CELL DISTRIBUTION WIDTH 18.2 % (11.5-15.0); WHITE BLOOD COUNT (AUTO) 14.5 K/uL (4.3-11.0)
[2024-12-19 10:30] LABS: ABG BASE EXCESS 10.0 mmol/L (-2.0-3.0); ABG OXYGEN SATURATION 96.5 % (94.0-98.0); ABG PCO2 36.1 mmHg (35.0-48.0); ABG PH 7.576 (7.350-7.450); ABG PO2 85.3 mmHg (83.0-108.0); ABG TOTAL HEMOGLOBIN 6.8 G/dL (13.5-17.5); FLOW, BLOOD GAS 5.00 L/min (0.00-30.00); FRACTIONATED INSPIRED OXYGEN 40.0 %; SITE, ABG LEFT RADIAL
[2024-12-19 12:03] LABS: EOSINOPHILS % (MANUAL) 1 % (0-4); LYMPHOCYTES % (MANUAL) 18 % (16-48); MONOCYTES % (MANUAL) 8 % (0-11.0); NEUTROPHILS % (MANUAL) 73 (42-76); PLATELET ESTIMATE ADEQUATE
[2024-12-20] VITALS: BP 85/49; TEMP 98.2; O2SAT 99
[2024-12-20] MEDS: MIDODRINE HCL (5MG) 5 MG TABLET PO ONE (00:30)
[2024-12-20 01:15] VITALS: BP 94/57; TEMP 98.2; O2SAT 99
[2024-12-20 07:49] LABS: CALCIUM, SERUM 8.6 mg/dL (8.5-10.1); CREATININE 1.8 mg/dL (0.6-1.3); PHOSPHORUS 3.8 mg/dL (2.5-4.9); SODIUM SERUM 142.0 mmol/L (136-145); UREA NITROGEN, BLOOD 67.0 mg/dL (7-18)
[2024-12-20 08:00] VITALS: BP 94/74; TEMP 98.1; O2SAT 98
[2024-12-20 08:13] LABS: PLATELET COUNT (AUTO) 349 K/uL (150-450); RED BLOOD CELL COUNT(AUTO) 2.92 MIL/uL (4.5-6.0); RED CELL DISTRIBUTION WIDTH 17.6 % (11.5-15.0); WHITE BLOOD COUNT (AUTO) 14.0 K/uL (4.3-11.0)
[2024-12-20] MEDS: POTASSIUM CL. PREMIX PERIPHER. 50 ML IV SCH (12:34)
[2024-12-20 16:00] VITALS: BP 90/52; TEMP 97.9; O2SAT 97
[2024-12-20] MEDS: MIDODRINE HCL (5MG) 5 MG TABLET PO SCH ×2 (16:00→16:20)
[2024-12-20 20:00] VITALS: BP 95/55; TEMP 97.7; O2SAT 98
[2024-12-21 04:00] VITALS: BP 118/56; TEMP 97.3; O2SAT 100
[2024-12-21 06:52] LABS: PLATELET COUNT (AUTO) 393 K/uL (150-450); RED BLOOD CELL COUNT(AUTO) 3.04 MIL/uL (4.5-6.0); RED CELL DISTRIBUTION WIDTH 17.9 % (11.5-15.0); WHITE BLOOD COUNT (AUTO) 14.3 K/uL (4.3-11.0)
[2024-12-21 06:59] LABS: CALCIUM, SERUM 8.5 mg/dL (8.5-10.1); CREATININE 1.7 mg/dL (0.6-1.3); PHOSPHORUS 3.3 mg/dL (2.5-4.9); SODIUM SERUM 139.0 mmol/L (136-145); UREA NITROGEN, BLOOD 51.0 mg/dL (7-18)
[2024-12-21 07:30] VITALS: BP 117/65; TEMP 97.9; O2SAT 100
[2024-12-21 08:00] VITALS: BP 117/65; TEMP 97.9; O2SAT 100
[2024-12-21] MEDS: POTASSIUM CL. PREMIX PERIPHER. 50 ML IV SCH (10:40)
[2024-12-21] MEDS ORDERED: NEPRO 1,000 ML BOTTLE GT PRN (13:00)
[2024-12-21] MEDS: NEPRO 1,000 ML BOTTLE GT PRN (13:42)
[2024-12-21 16:00] VITALS: BP 94/46; TEMP 99.1; O2SAT 92
[2024-12-21 20:00] VITALS: BP 94/57; TEMP 98.6; O2SAT 96
[2024-12-22 04:00] VITALS: BP 116/72; TEMP 99.5; O2SAT 99
[2024-12-22 07:47] LABS: CALCIUM, SERUM 9.0 mg/dL (8.5-10.1); CREATININE 2.2 mg/dL (0.6-1.3); PHOSPHORUS 4.0 mg/dL (2.5-4.9); SODIUM SERUM 139.0 mmol/L (136-145); UREA NITROGEN, BLOOD 64.0 mg/dL (7-18)
[2024-12-22 08:00] VITALS: BP 132/79; TEMP 98.6; O2SAT 92
[2024-12-22 08:05] LABS: INR 1.16 (0.91-1.10)
[2024-12-22] MEDS: PROSOURCE / PROSTAT (PYXIS) 30 ML UDC GT SCH (08:48)
[2024-12-22 16:00] VITALS: BP 115/73; TEMP 98.5; O2SAT 92
[2024-12-22 20:00] VITALS: BP 114/61; TEMP 99.7; O2SAT 92
[2024-12-23 04:00] VITALS: BP 105/60; TEMP 99; O2SAT 100
[2024-12-23 07:07] LABS: INR 1.18 (0.91-1.10)
[2024-12-23 07:09] LABS: PLATELET COUNT (AUTO) 403 K/uL (150-450); RED BLOOD CELL COUNT(AUTO) 2.91 MIL/uL (4.5-6.0); RED CELL DISTRIBUTION WIDTH 18.1 % (11.5-15.0); WHITE BLOOD COUNT (AUTO) 17.3 K/uL (4.3-11.0)
[2024-12-23 07:20] LABS: CALCIUM, SERUM 8.4 mg/dL (8.5-10.1); CREATININE 1.5 mg/dL (0.6-1.3); PHOSPHORUS 3.3 mg/dL (2.5-4.9); SODIUM SERUM 138.0 mmol/L (136-145); UREA NITROGEN, BLOOD 37.0 mg/dL (7-18)
[2024-12-23] MEDS ORDERED: LIDOCAINE 1% INJ 50 ML MDV IJ ONE (07:59)
[2024-12-23] MEDS ORDERED: HEPARIN SODIUM, PORCINE 1,000 UNIT/ML VIAL ONE (07:59)
[2024-12-23] MEDS ORDERED: IOHEXOL 0 ML IV ONE (07:59)
[2024-12-23 08:00] VITALS: BP 105/64; TEMP 97.9; O2SAT 95
[2024-12-23] MEDS: POTASSIUM CL. PREMIX PERIPHER. 50 ML IV SCH (09:15)
[2024-12-23 16:00] VITALS: BP 103/63; TEMP 97.1; O2SAT 99
[2024-12-23 20:00] VITALS: BP 114/56; TEMP 98.1; O2SAT 97
[2024-12-24 04:00] VITALS: BP 128/66; TEMP 97.9; O2SAT 99
[2024-12-24 08:00] VITALS: BP 92/51; TEMP 98.2; O2SAT 99
[2024-12-24] MEDS ORDERED: CEFAZOLIN 1 GM VIAL IM SCH (13:00)
[2024-12-24] MEDS ORDERED: CEFAZOLIN 2 GM in IV D5W 100 ML IV ONE (13:00)
[2024-12-24 16:00] VITALS: BP 132/52; TEMP 97.9; O2SAT 99
[2024-12-24] MEDS: CEFAZOLIN 2 GM in IV D5W 100 ML IV SCH (16:10)
[2024-12-24] MEDS: INSULIN REGULAR, HUMAN 100 UNIT/ML 3 ML VIAL SQ PRN (17:34)
[2024-12-24] MEDS: PROSOURCE / PROSTAT (PYXIS) 30 ML UDC GT SCH (18:00)
[2024-12-24 20:00] VITALS: BP 133/60; TEMP 100.2; O2SAT 99
[2024-12-25 01:27] VITALS: TEMP 98.8
[2024-12-25 04:00] VITALS: BP 112/55; TEMP 99; O2SAT 98
[2024-12-25 07:39] LABS: INR 1.19 (0.91-1.10)
[2024-12-25 07:57] LABS: ASPARTATE AMINOTRANSFERASE 27.0 U/L (15-37); CALCIUM, SERUM 8.4 mg/dL (8.5-10.1); CREATININE 2.7 mg/dL (0.6-1.3); PHOSPHORUS 3.5 mg/dL (2.5-4.9); SODIUM SERUM 140.0 mmol/L (136-145); TOTAL PROTEIN, SERUM 7.0 g/dL (6.4-8.2); UREA NITROGEN, BLOOD 56.0 mg/dL (7-18)
[2024-12-25 09:20] LABS: PLATELET COUNT (AUTO) 326 K/uL (150-450); RED BLOOD CELL COUNT(AUTO) 2.91 MIL/uL (4.5-6.0); RED CELL DISTRIBUTION WIDTH 17.3 % (11.5-15.0); WHITE BLOOD COUNT (AUTO) 12.2 K/uL (4.3-11.0)
[2024-12-25 11:12] VITALS: BP 104/60; TEMP 99.6; O2SAT 99
[2024-12-25] MEDS ORDERED: MIDAZOLAM HCL 2 MG/2ML VIAL IV PRN (13:30)
[2024-12-25] MEDS ORDERED: FENTANYL PF 250MCG/5ML AMPUL IV PRN (13:30)
[2024-12-25] MEDS ORDERED: NALOXONE PREFILLED SYRINGE 2 MG/2 ML SYRINGE IV PRN (13:30)
[2024-12-25] MEDS ORDERED: FLUMAZENIL 0.5 MG VIAL IV PRN (13:30)
[2024-12-25 16:32] VITALS: BP 132/64; TEMP 97.9; O2SAT 98
[2024-12-25 20:15] VITALS: BP 100/49; TEMP 98.8; O2SAT 98
[2024-12-25 20:16] VITALS: BP 108/53
[2024-12-26 04:00] VITALS: BP 116/64; TEMP 97.8
[2024-12-26 07:42] LABS: PLATELET COUNT (AUTO) 247 K/uL (150-450); RED BLOOD CELL COUNT(AUTO) 2.84 MIL/uL (4.5-6.0); RED CELL DISTRIBUTION WIDTH 16.7 % (11.5-15.0); WHITE BLOOD COUNT (AUTO) 11.3 K/uL (4.3-11.0)
[2024-12-26 07:54] LABS: CALCIUM, SERUM 8.6 mg/dL (8.5-10.1); CREATININE 3.2 mg/dL (0.6-1.3); PHOSPHORUS 4.1 mg/dL (2.5-4.9); SODIUM SERUM 140.0 mmol/L (136-145); UREA NITROGEN, BLOOD 77.0 mg/dL (7-18)
[2024-12-26 08:00] VITALS: BP 115/59; TEMP 97.9; O2SAT 97
[2024-12-26 16:00] VITALS: BP 117/90; TEMP 98.1; O2SAT 97
[2024-12-26 20:00] VITALS: BP 125/90; TEMP 100.6; O2SAT 96
[2024-12-27] VITALS (60 sets, daily range): BP systolic 34–113; BP diastolic 13–90; TEMP 99.1–101.6; O2SAT 7–100
[2024-12-27] MEDS ORDERED: IV NS 0.9% 1,000 ML IV PRN (01:30)
[2024-12-27 01:34] LABS: PLATELET COUNT (AUTO) 226 K/uL (150-450); RED BLOOD CELL COUNT(AUTO) 2.67 MIL/uL (4.5-6.0); RED CELL DISTRIBUTION WIDTH 17.0 % (11.5-15.0); WHITE BLOOD COUNT (AUTO) 10.0 K/uL (4.3-11.0)
[2024-12-27 01:44] LABS: CALCIUM, SERUM 8.2 mg/dL (8.5-10.1); CREATININE 2.4 mg/dL (0.6-1.3); SODIUM SERUM 140 mmol/L (136-145); UREA NITROGEN, BLOOD 48 mg/dL (7-18)
[2024-12-27] MEDS: NOREPINEPHRINE 8MG/250ML RTU 0 ML IV ONE (01:46)
[2024-12-27 01:49] LABS: ASPARTATE AMINOTRANSFERASE 30 U/L (15-37); TOTAL PROTEIN, SERUM 6.5 g/dL (6.4-8.2)
[2024-12-27] MEDS: PHENYLEPHRINE 10 MG/ML VIAL ONE ×2 (01:59→05:44)
[2024-12-27] MEDS ORDERED: NOREPINEPHRINE 8 MG in IV D5W 242 ML IV PRN ×3 (02:00→11:30)
[2024-12-27] MEDS: AMIODARONE 150 MG/3 ML VIAL IV ONE (02:09)
[2024-12-27 02:12] LABS: ABG BASE EXCESS -0.9 mmol/L (-2.0-3.0); ABG OXYGEN SATURATION 90.8 % (94.0-98.0); ABG PCO2 41.0 mmHg (35.0-48.0); ABG PH 7.387 (7.350-7.450); ABG PO2 64.4 mmHg (83.0-108.0); ABG TOTAL HEMOGLOBIN 10.0 G/dL (13.5-17.5); FLOW, BLOOD GAS 6.00 L/min (0.00-30.00); FRACTIONATED INSPIRED OXYGEN 44.0 %; SET RATE, BG 22.0; SITE, ABG LEFT RADIAL
[2024-12-27 02:17] LABS: BAND % (MANUAL) 2 % (0.0-5.0); EOSINOPHILS % (MANUAL) 1 % (0-4); LYMPHOCYTES % (MANUAL) 6 % (16-48); MONOCYTES % (MANUAL) 2 % (0-11.0); NEUTROPHILS % (MANUAL) 89 (42-76)
[2024-12-27 02:18] LABS: PLATELET ESTIMATE ADEQUATE
[2024-12-27] MEDS ORDERED: ALBUMIN 25% 50 ML IV ONE (02:29)
[2024-12-27] MEDS: PHENYLEPHRINE 50 MG in IV NS 0.9% 245 ML IV PRN (02:30)
[2024-12-27] MEDS ORDERED: ROCURONIUM BROMIDE 50 MG/5 ML ONE (02:40)
[2024-12-27] MEDS: FUROSEMIDE 40 MG/4 ML VIAL IV SCH (02:42)
[2024-12-27] MEDS ORDERED: PROPOFOL 10MG/ML 50ML 50 ML IV PRN (03:00)
[2024-12-27] MEDS: FUROSEMIDE 40 MG/4 ML VIAL IV ONE (03:11)
[2024-12-27] MEDS: ALBUMIN 25% 12.5 GM/50 ML BOTTLE IV ONE (03:14)
[2024-12-27] MEDS: ETOMIDATE 2 MG/ML VIAL ONE (03:19)
[2024-12-27] MEDS: AMIODARONE 150 MG in IV D5W 100 ML IV ONE (03:31)
[2024-12-27] MEDS: AMIODARONE 450 MG in IV D5W 241 ML IV PRN (03:43)
[2024-12-27 04:54] LABS: ABG BASE EXCESS -0.1 mmol/L (-2.0-3.0); ABG OXYGEN SATURATION 90.8 % (94.0-98.0); ABG PCO2 62.0 mmHg (35.0-48.0); ABG PH 7.266 (7.350-7.450); ABG PO2 71.0 mmHg (83.0-108.0); ABG TOTAL HEMOGLOBIN 9.5 G/dL (13.5-17.5); FRACTIONATED INSPIRED OXYGEN 100.0 %; PEEP,BG 5 cm H2O; SET RATE, BG 16.0; SITE, ABG LEFT RADIAL; VT, ABG 450 mL
[2024-12-27] MEDS ORDERED: ALBUMIN 25% 25 GM in PREMIX 1 EA IV SCH (05:00)
[2024-12-27] MEDS: PHENYLEPHRINE 100 MG in IV NS 0.9% 240 ML IV PRN (06:10)
[2024-12-27] MEDS: DOPamine 800 MG in IV D5W 250 ML IV PRN (07:43)
[2024-12-27] MEDS ORDERED: ETOMIDATE 2 MG/ML VIAL IV ONE (07:51)
[2024-12-27 07:58] LABS: ASPARTATE AMINOTRANSFERASE 31 U/L (15-37); CALCIUM, SERUM 8.3 mg/dL (8.5-10.1); CREATININE 2.5 mg/dL (0.6-1.3); PHOSPHORUS 2.9 mg/dL (2.5-4.9); SODIUM SERUM 140 mmol/L (136-145); TOTAL PROTEIN, SERUM 6.8 g/dL (6.4-8.2); UREA NITROGEN, BLOOD 49 mg/dL (7-18)
[2024-12-27 08:02] LABS: PLATELET COUNT (AUTO) 250 K/uL (150-450); RED BLOOD CELL COUNT(AUTO) 3.21 MIL/uL (4.5-6.0); RED CELL DISTRIBUTION WIDTH 17.8 % (11.5-15.0); WHITE BLOOD COUNT (AUTO) 6.5 K/uL (4.3-11.0)
[2024-12-27 10:12] LABS: LYMPHOCYTES % (MANUAL) 25 % (16-48); MONOCYTES % (MANUAL) 5 % (0-11.0); NEUTROPHILS % (MANUAL) 70 (42-76)
[2024-12-27 10:13] LABS: PLATELET ESTIMATE ADEQUATE
[2024-12-27] MEDS ORDERED: VASOPRESSIN INJ 40 UNIT in IV NS 0.9% 38 ML IV PRN (10:30)
[2024-12-27] MEDS ORDERED: DOSING PER PHARMACY-VANCOMYCIN IV XX PRN (10:30)
[2024-12-27] MEDS ORDERED: PRECEDEX 400 MCG/100 ML BOTTLE 100 ML IV PRN (10:30)
[2024-12-27] MEDS: VASOPRESSIN INJ 40 UNIT in IV NS 0.9% 38 ML IV PRN (10:32)
[2024-12-27] MEDS: POTASSIUM CHLORIDE 20 MEQ POWDER PACKET GT SCH (10:51)
[2024-12-27] MEDS: HYDROCORTISONE SOD SUCCINATE 100 MG/2 ML VIAL IV SCH (11:08)
[2024-12-27 11:45] LABS: ABG BASE EXCESS -6.9 mmol/L (-2.0-3.0); ABG OXYGEN SATURATION 78.1 % (94.0-98.0); ABG PCO2 67.1 mmHg (35.0-48.0); ABG PH 7.139 (7.350-7.450); ABG PO2 56.4 mmHg (83.0-108.0); ABG TOTAL HEMOGLOBIN 9.2 G/dL (13.5-17.5); FRACTIONATED INSPIRED OXYGEN 100.0 %; SET RATE, BG 20.0; SITE, ABG LEFT FEMORAL; VT, ABG 450 mL
[2024-12-27] MEDS: MEROPENEM 500 MG in IV NS 0.9% 50 ML IV SCH (12:00)
[2024-12-27] MEDS: SODIUM BICARBONATE SYR 50 MEQ/50 ML DISP.SYRIN IV ONE (12:11)
[2024-12-27 12:41] LABS: LACTIC ACID 4.6 mmol/L (0.4-2.0)
[2024-12-27] MEDS ORDERED: HYDROCORTISONE SOD SUCCINATE 100 MG/2 ML VIAL IV SCH (13:00)
[2024-12-27] MEDS ORDERED: VANCOMYCIN 1 GM in IV D5W 250ml IV ONE (13:00)
[2024-12-27] MEDS ORDERED: MEROPENEM 1 G in IV NS 0.9% 100 ML IV SCH (13:00)
[2024-12-27] MEDS ORDERED: SODIUM BICARBONATE SYR 50 MEQ/50 ML DISP.SYRIN ONE (13:21)
[2024-12-27] MEDS: HYDROCORTISONE SOD SUCCINATE 100 MG/2 ML VIAL IV ONE (13:52)
[2024-12-27 13:55] LABS: ABG BASE EXCESS -7.9 mmol/L (-2.0-3.0); ABG OXYGEN SATURATION 78.6 % (94.0-98.0); ABG PCO2 47.5 mmHg (35.0-48.0); ABG PH 7.226 (7.350-7.450); ABG PO2 52.0 mmHg (83.0-108.0); ABG TOTAL HEMOGLOBIN 8.3 G/dL (13.5-17.5); FRACTIONATED INSPIRED OXYGEN 100.0 %; PEEP,BG 7 cm H2O; SET RATE, BG 26.0; SITE, ABG LEFT RADIAL; VT, ABG 500 mL
[2024-12-27] MEDS ORDERED: Sodium Bicarbonate 150 MEQ in IV D5W 1,000 ML IV SCH (14:00)
[2024-12-27] MEDS ORDERED: SODIUM BICARBONATE SYR 50 MEQ/50 ML DISP.SYRIN IV ONE ×2 (14:31→15:16)
[2024-12-27] MEDS ORDERED: CALCIUM CHLORIDE 1,000 MG/10 ML DISP.SYRIN IV ONE ×2 (14:31→16:56)
[2024-12-27] MEDS ORDERED: EPINEPHRINE (1:10,000) SYRINGE 1 MG/10 ML DISP.SYRIN IVP ONE ×2 (14:31→15:16)
[2024-12-27] MEDS: DOBUTamine 500 MG in IV D5W 210 ML IV PRN (15:28)
[2024-12-27] MEDS: EPINEPHRINE (1:1000) 10 MG in IV NS 0.9% 240 ML IV PRN (15:30)
[2024-12-27 15:38] LABS: PLATELET COUNT (AUTO) 119 K/uL (150-450); RED BLOOD CELL COUNT(AUTO) 2.35 MIL/uL (4.5-6.0); RED CELL DISTRIBUTION WIDTH 18.9 % (11.5-15.0); WHITE BLOOD COUNT (AUTO) 3.8 K/uL (4.3-11.0)
[2024-12-27 15:43] LABS: CALCIUM, SERUM 9.4 mg/dL (8.5-10.1); CREATININE 2.4 mg/dL (0.6-1.3); SODIUM SERUM 151.0 mmol/L (136-145); UREA NITROGEN, BLOOD 49.0 mg/dL (7-18)
[2024-12-27 16:48] LABS: LACTIC ACID REFLEX 21.2 mmol/L (0.4-1.9)
[2024-12-27] MEDS ORDERED: DEXTROSE 50%-WATER 50 ML DISP.SYRIN IV ONE (16:56)
[2024-12-27] MEDS: Sodium Bicarbonate 150 MEQ in IV D5W 1,000 ML IV SCH (17:24)
[2024-12-27 17:32] LABS: BAND % (MANUAL) 2 % (0.0-5.0); LYMPHOCYTES % (MANUAL) 80 % (16-48); MONOCYTES % (MANUAL) 1 % (0-11.0); MYELOCYTES % 4 % (0-0); NEUTROPHILS % (MANUAL) 13 (42-76); PLATELET ESTIMATE DECREASED
[2024-12-28] MEDS ORDERED: VANCOMYCIN POST DIALYSIS 500MG IV PRN (17:00)
== END 2024-12-27 15:52 | DRG 853 ==
LOC: ER 20:14 → MEDSG1 22:20 → TELE1 22:57 → MEDSG1 12-08 19:51 → ICUOV 12-27 01:52 → ICU 12-27 02:54
PROVIDERS: ATTEND Nurse Practitioner Acute Care
PROC: 0KBP0ZZ Excision of Left Hip Muscle, Open Approach (ICD-10-PCS; principal; 2024-12-09)
PROC: 0KBN0ZZ Excision of Right Hip Muscle, Open Approach (ICD-10-PCS; 2024-12-09)
PROC: 30233N1 Transfusion of Nonautologous Red Blood Cells into Peripheral Vein, Percutaneous Approach (ICD-10-PCS; 2024-12-14)
PROC: 5A1D70Z Performance of Urinary Filtration, Intermittent, Less than 6 Hours Per Day (ICD-10-PCS; 2024-12-18)
PROC: 06HY33Z Insertion of Infusion Device into Lower Vein, Percutaneous Approach (ICD-10-PCS; 2024-12-18)
PROC: 0JH63XZ Insertion of Tunneled Vascular Access Device into Chest Subcutaneous Tissue and Fascia, Percutaneous Approach (ICD-10-PCS; 2024-12-23)
PROC: 02HV33Z Insertion of Infusion Device into Superior Vena Cava, Percutaneous Approach (ICD-10-PCS; 2024-12-23)
PROC: B518YZA Fluoroscopy of Superior Vena Cava using Other Contrast, Guidance (ICD-10-PCS; 2024-12-23)
PROC: 0TB03ZX Excision of Right Kidney, Percutaneous Approach, Diagnostic (ICD-10-PCS; 2024-12-25)
PROC: 0BH17EZ Insertion of Endotracheal Airway into Trachea, Via Natural or Artificial Opening (ICD-10-PCS; 2024-12-27)
PROC: 5A1935Z Respiratory Ventilation, Less than 24 Consecutive Hours (ICD-10-PCS; 2024-12-27)
PROC: 02HV33Z Insertion of Infusion Device into Superior Vena Cava, Percutaneous Approach (ICD-10-PCS; 2024-12-27)
PROC: 5A12012 Performance of Cardiac Output, Single, Manual (ICD-10-PCS; 2024-12-27)
PROC: 5A12012 Performance of Cardiac Output, Single, Manual (ICD-10-PCS; 2024-12-27)
DX: A41.9 Sepsis, unspecified organism (principal); E43 Unspecified severe protein-calorie malnutrition; J15.69 Pneumonia due to other Gram-negative bacteria; L89.154 Pressure ulcer of sacral region, stage 4; J96.01 Acute respiratory failure with hypoxia; G93.41 Metabolic encephalopathy; J96.02 Acute respiratory failure with hypercapnia; G93.5 Compression of brain; R65.21 Severe sepsis with septic shock; I50.33 Acute on chronic diastolic (congestive) heart failure; N17.9 Acute kidney failure, unspecified; D68.59 Other primary thrombophilia; E87.1 Hypo-osmolality and hyponatremia; E87.4 Mixed disorder of acid-base balance; I69.354 Hemiplegia and hemiparesis following cerebral infarction affecting left non-dominant side; R47.01 Aphasia; E78.5 Hyperlipidemia, unspecified; E87.6 Hypokalemia; E88.09 Other disorders of plasma-protein metabolism, not elsewhere classified; I48.91 Unspecified atrial fibrillation; Z74.01 Bed confinement status; Z79.82 Long term (current) use of aspirin; Z87.01 Personal history of pneumonia (recurrent); Z87.440 Personal history of urinary (tract) infections; Z93.1 Gastrostomy status; Z99.2 Dependence on renal dialysis; Z20.822 Contact with and (suspected) exposure to COVID-19; R13.10 Dysphagia, unspecified; I34.0 Nonrheumatic mitral (valve) insufficiency; D64.9 Anemia, unspecified; Z79.01 Long term (current) use of anticoagulants; Z79.4 Long term (current) use of insulin; Z68.22 Body mass index [BMI] 22.0-22.9, adult; L89.626 Pressure-induced deep tissue damage of left heel; L89.011 Pressure ulcer of right elbow, stage 1; L98.8 Other specified disorders of the skin and subcutaneous tissue; F01.50 Vascular dementia, unspecified severity, without behavioral disturbance, psychotic disturbance, mood disturbance, and anxiety; N18.9 Chronic kidney disease, unspecified; E11.22 Type 2 diabetes mellitus with diabetic chronic kidney disease; Z66 Do not resuscitate
CPT/HCPCS: 31720; 36415; 36600; 70450-TC; 71045-TC; 71250-TC; 76770-TC; 80048-TC; 80053-TC; 80076-TC; 80202-TC; 81001; 82248-TC; 82533; 82550-TC; 82570-TC; 82607-TC; 82728-TC; 82803-TC; 82962-TC; 83540-TC; 83605-TC; 83735-TC; 83880; 83970; 84100-TC; 84300-TC; 84443-TC; 84484-TC; 85025-TC; 85027-TC; 85378-TC; 85610-TC; 85652-TC; 85730-TC; 86225; 86235; 86704; 86705; 86706; 86803; 86850-TC; 87040-TC; 87081-TC; 87086-TC; 87340; 90935-TC; 92950-TC; 93880-TC; 94002-TC; 94762-TC; 94799-TC; A4216; A4223; A6213; A6223; A6253; A6403; C1750; C1894; G0378; J0169; J0282; J0690; J1250; J1265; J1644; J1720; J1815; J1938; J2185; J2470; J2543; J2704; J3373; J3374; J3480; J3490; J7030; J7040; J7050; J7060; J7070; P9016; P9047; Q9967